=== PATIENT | male | born 1970 | race Caucasian/White ===

== ENCOUNTER 2024-04-07 21:30 | Inpatient (IN) ==
[2024-04-07] MEDS: methylPREDNISolone 125 MG/2 ML VIAL IV STA (23:31)
[2024-04-07] MEDS: ALBUT/IPRATROP 3MG/0.5MG NEB 3 ML VIAL NEB STA (23:32)
[2024-04-07] MEDS: SODIUM CHLORIDE 0.9% 500 ML IV ONE (23:34)
[2024-04-07 23:35] LABS: Hematocrit (blood only) 47.1 % (42.0-52.0); Hemoglobin 16.5 g/dl (14.0-18.0); Mean Corpuscular Hemoglobin 32.1 pg (25.0-34.0); Mean Corpuscular Volume 91.6 fL (80.0-100.0); Mean Platelet Volume 11.5 fL (9.4-12.4); Platelet Count 225 K/uL (130-400); RDW Coefficient of Variation 13.2 % (11.5-14.5); RDW Standard Deviation 44.1 fL (36.4-46.3); Red Blood Count 5.14 M/uL (4.70-6.10); White Blood Count 8.68 K/ul (4.8-10.8)
[2024-04-07] MEDS: MAGNESIUM SULFATE / D5W 1 GM/100 ML BAG IV STA (23:35)
[2024-04-07 23:43] LABS: Albumin Globulin Ratio 1.5 (0.9-2); Albumin Level 4.5 gm/dl (3.4-5.0); BUN Creatinine Ratio 7.6 (10-20); Bilirubin,Total 0.4 mg/dl (0.2-1.0); Calcium 9.3 mg/dl (8.6-10.3); Creatinine Clr Calc Pharmacy 101.5 ml/min; Magnesium 1.8 mg/dl (1.7-2.4); Potassium 3.9 mmol/L (3.5-5.1); Total Protein 7.5 gm/dl (6.0-8.3)
[2024-04-07 23:49] LABS: Troponin I High Sensitivity 4.1 pg/ml (0-20)
[2024-04-07 23:54] LABS: Basophils # (auto) 0.02 K/uL (0.00-0.20); Basophils % (auto) 0.2 %; Immature Granulocytes # (auto) 0.05 K/uL (0.01-0.20); Immature Granulocytes % (auto) 0.6 %; Lymphocytes # (auto) 0.38 K/uL (1.20-3.40); Lymphocytes % (auto) 4.4 %; Monocytes # (auto) 0.33 K/uL (0.11-0.59); Monocytes % (auto) 3.8 %
[2024-04-08 00:04] LABS: D Dimer 320 ug/L FEU (0-500); Prothrombin Time 11.1 Seconds (9.0-12.0)
[2024-04-08 00:17] LABS: Adenovirus PCR Not Detected (NotDetected); Bordetella parapertussis PCR Not Detected (NotDetected); Bordetella pertussis PCR Not Detected (NotDetected); Chlamydia pneumoniae PCR Not Detected (NotDetected); Coronavirus 229E PCR Not Detected (NotDetected); Coronavirus CoV-2 (COVID19)PCR Not Detected (NotDetected); Coronavirus HKU1 PCR Not Detected (NotDetected); Coronavirus NL63 PCR Not Detected (NotDetected); Coronavirus OC43PCR Not Detected (NotDetected); Human Metapneumovirus PCR Not Detected (NotDetected); Influenza A (H1 2009) PCR DETECTED (NotDetected); Influenza B PCR Not Detected (NotDetected); Mycoplasma pneumoniae PCR Not Detected (NotDetected); Parainfluenza Virus 1 PCR Not Detected (NotDetected); Parainfluenza Virus 2 PCR Not Detected (NotDetected); Parainfluenza Virus 3 PCR Not Detected (NotDetected); Parainfluenza Virus 4 PCR Not Detected (NotDetected); Respiratory Syncytial VirusPCR Not Detected (NotDetected); Rhinovirus/Enterovirus PCR Not Detected (NotDetected)
[2024-04-08] MEDS: CETIRIZINE HCL 10 MG TABLET PO ONE (00:33)
[2024-04-08] MEDS: FAMOTIDINE 20MG IV PUSH 20 MG/5 ML SYR IV STA (00:34)
[2024-04-08] MEDS: PANTOprazole 40 MG/10 ML SYR IV ONE (00:38)
[2024-04-08] MEDS: ALBUT/IPRATROP 3MG/0.5MG NEB 3 ML VIAL NEB STA ×2 (00:41→01:40)
[2024-04-08] MEDS: LORazepam 1 MG/1 ML SYR ED Inj Use IV STA (00:45)
--- NOTE | 2024-04-08 00:50 | Emergency Department Note ---
Impression & Plan Dyspnea, Influenza A, Acute exacerbation of chronic obstructive pulmonary disease (COPD), Dehydration ED Provider Note ED Provider Note NAME: ASHLEY HORAN AGE:53 SEX: Male : 1970 ARRIVES VIA: private vehicle INFORMANT: Patient ED PROVIDER(s): Pura Salgado DO CHIEF COMPLAINT: Shortness of breath, cough HPI: This is a 53-year-old male who presents to the emergency department due to concern for increased shortness of breath and persistent cough. Patient with a known history of COPD. Patient states symptoms have been worsening over the last few days. Patient states he was also sick with GI symptoms recently and suspected he had the flu his multiple family members were also sick. Patient states he had a similar episode back in the fall and he was given IV steroids and an antibiotic. He does follow with pulmonology locally, Dr. Mckeon. Patient does use inhalers at home as well as nebulizers. He does not wear home oxygen. He does take azithromycin 3 times a week at baseline. PAST MEDICAL HISTORY:See Below PAST SURGICAL HISTORY:See Below FAMILY HISTORY:See Below SOCIAL HISTORY:See Below HOME MEDICATIONS:See Below ALLERGIES:See Below VITALS:See Below PHYSICAL EXAMINATION: GENERAL: alert, well appearing, well nourished, no distress, non-toxic, BMI 36 EYE EXAM: normal conjunctiva, PERRL and EOM's grossly intact OROPHARYNX: no exudate, no erythema, lips, buccal mucosa, and tongue normal and mucous membranes are moist NECK: supple, no nuchal rigidity, no adenopathy, non-tender LUNGS: Decreased bilaterally to auscultation. Normal chest wall mechanics, no r/r, faint end exp wheeze HEART: no murmurs, S1 normal and S2 normal ABDOMEN: abdomen soft, non-tender, normo-active bowel sounds, no masses, no rebound or guarding. SKIN: no rashes, petechiae, orbruising UPPER EXTREMITIES: upper extremities are grossly normal. FROM, nml pulses b/l. LOWER EXTREMITIES: No pitting edema. FROM, nml pulses b/l. NEURO EXAM: Normal sensorium, cranial nerves II-XII grossly intact, normal speech, no facial droop,nogross weakness of arms, no gross weakness of legs. Gross sensation intact. No ataxia. Vital Signs: reviewed and remarkable Differential Diagnosis: pneumonia, bronchitis, COPD/Asthma exacerbation, pneumothorax, pulmonary embolism, congestive heart failure, acute coronary syndrome, as well as others were considered MEDICAL DECISION MAKING: This is a 53-year-old male with history of significant COPD/emphysema who presents due to worsening shortness of breath, cough, and chest tightness evolving over the last several days after recent accompanying illness with GI symptoms. He was noted to be tachycardic and hypertensive here with markedly diminished breath sounds and scattered faint expiratory wheeze. Labs drawn and sent, IV established, EKG and chest ray performed at bedside interpreted me and patient monitored on telemetry. He was given a DuoNeb here as well as IV Solu- Medrol and IV magnesium. I did review his prior admission for COPD exacerbation. We discussed prior antibiotics as well and his current MDI/nebs. Patient given several more DuoNebs without significant improvement. Patient's nasal swab ultimately positive for influenza A which has likely been the cause of his other recent symptoms which may have exacerbated his underlying COPD. Patient with persistent tachycardia here additionally. We discussed all results as well as concern for his ongoing symptoms at bedside as he only had temporary relief following the nebulizer treatments. He was in agreement with the plan for further inpatient evaluation. Case discussed with the hospitalist team additionally. Consultation(s): 0225: Discussed with Dr. Contreras, [facility] hospitalist team, for additional evaluation and management. ER Treatment Provided: See below 0215: Patient still with difficulty breathing and chest tightness although no adventitious lung sounds noted after the third DuoNeb treatment and having already received IV Solu-Medrol IV magnesium and 500 mL of IV fluid. Patient does note he has temporary relief during the breathing treatment of approximately 10 to 15 minutes however he then begins to feel as though his symptoms are returning. Due to concern for advanced COPD/emphysema and concurrent influenza A infection, we discussed further inpatient management and possible pulmonary evaluation. Diagnostics Interpreted By Me: -ECG: Sinus tachycardia 120, normal axis, normal intervals, no acute ST/T wave changes -Cardiac Monitoring: An order was placed for continuous cardiac monitoring. The monitor shows a rate of 112 with sinus tachycardia rhythm. -Laboratory studies: As stated above and show below. -Imaging studies: X-ray Chest: A single view study of the chest was reviewed and was negative for cardiomegaly, focal infiltrate, effusion, pulmonary edema, or wide mediastinum. Triage Nursing Note Reviewed Prior/Outside Records Reviewed Critical Care: Critical care of 39 min performed to assess and manage high likelihood of life-threatening dyspnea, involving labs and imaging performed with assessment to evaluate COPD exacerbation diagnosis with frequent reassessment. This time includes bedside time, treatment discussions with patient/family/consultants, documentation time and excludes procedure time. Past Med/Surg History Problem List (Updated 04/08/24 @ 00:50 by Pura Salgado, DO) Dehydration (Acute) Acute exacerbation of chronic obstructive pulmonary disease (COPD) (Acute) Influenza A (Acute) Dyspnea (Acute) Type 2 diabetes mellitus DANIELITO (obstructive sleep apnea) Dyslipidemia Chronic bronchitis Allergic rhinitis with postnasal drip Hypersomnia Exertional shortness of breath COPD with emphysema Depression History of tobacco use Calcified granuloma of lung Insulin-requiring or dependent type II diabetes mellitus Hypertension Obesity Type 2 diabetes mellitus, controlled Abdominal pain Edema leg GERD (gastroesophageal reflux disease) Encounter for pre-operative examination Nasal congestion Frontal headache Chronic sinusitis Shortness of breath FOLLOWS WITH PULMONOLOGY (REASON FOR PREDNISONE) ? DX Emphysema of lung Dyspnea (Acute) Medical History Bulging disc LUMBAR Degenerative disc disease Environmental allergies Surgical History H/O shoulder surgery RT History of tooth extraction History of tonsillectomy Family History Mother Diabetes COPD (chronic obstructive pulmonary disease) Father Diabetes Coronary heart disease Grandmother (Maternal) Family history of diabetes mellitus Social History Smoking Status: Former smoker Tobacco Type: Cigarettes Age Started Using Tobacco: 12; Age Quit Using Tobacco: 46; packs per day: 1.5; Second Hand Exposure: Yes ( A CHILD); Do You Dip or Chew Tobacco: No; Hx Alcohol Use: Yes Alcohol type: beer Hx Substance Use: No Preferred Language: Ug[place]an Communication Ability: Effective Toby Maker Required: No Beliefs That Will Affect Care: None marital status: Current Living Situation: Spouse Current Living Situation Comment: at home life partner Feels Safe at Home: Yes Safety Concerns: Feels Safe At This Time Assistive Devices: CPAP Allergies Allergies Allergy/AdvReac Type Severity Reaction Status Date / Time No Known Drug Allergies Allergy Verified 03/19/24 15:48 Home Meds Home Medications Medication Instructions Recorded Confirmed ascorbate calcium (vitamin C) 500 500 mg PO DAILY 06/05/20 04/08/24 mg tablet cholecalciferol (vitamin D3) 125 50 mcg PO DAILY 06/05/20 04/08/24 mcg (5,000 unit) tablet (Vitamin D3) magnesium 250 mg tablet 250 mg PO DAILY 06/05/20 04/08/24 zinc gluconate 30 mg tablet 30 mg PO DAILY 06/05/20 04/08/24 levocetirizine 5 mg tablet 5 mg PO DAILY PRN allergy symptoms 01/18/22 04/08/24 mecobalamin (vitamin B12) 5,000 5,000 mcg PO DAILY 02/10/23 04/08/24 mcg chewable tablet clonazepam 1 mg tablet 1 - 2 mg PO DAILY PRN Anxiety AND 12/05/23 04/08/24 PANIC bupropion HCl 200 mg tablet,12 hr 200 mg PO QAM 04/08/24 04/08/24 sustained-release famotidine 20 mg tablet 20 mg PO BID 04/08/24 04/08/24 pantoprazole 40 mg tablet,delayed 40 mg PO BID 04/08/24 04/08/24 release vortioxetine 20 mg tablet 20 mg PO QAM 04/08/24 04/08/24 (Trintellix) Previous Rx's Medication Instructions Recorded nebulizers #1 ea 11/25/20 azelastine 137 mcg (0.1 %) nasal 1 spray intranasal BID #30 mL 06/21/22 spray Flutter Valve #1 ea 06/22/22 nebulizers (Aeroneb Go Nebulizer) #1 ea 06/23/22 flash glucose sensor (FreeStyle #2 ea 10/29/22 Mehul 2 Sensor kit) benzonatate 100 mg capsule 100 mg PO BID #90 caps 12/07/22 Auto Titrating CPAP #1 ea 02/16/23 CPAP Supplies #1 ea 02/16/23 furosemide 20 mg tablet (Lasix) 20 mg PO BID #180 tabs 07/18/23 betamethasone dipropionate 0.05 % 1 applic topical DAILY #60 mL 09/07/23 lotion blood sugar diagnostic #200 ea 12/28/23 insulin aspart U-100 100 unit/mL 6 unit (0.06 mL) subcut TID #30 mL 12/28/23 (3 mL) subcutaneous pen (Novolog FlexPen U-100 Insulin aspart) insulin glargine 100 unit/mL (3 6 unit (0.06 mL) subcut DAILY #15 12/28/23 mL) subcutaneous pen (Lantus mL Solostar U-100 Insulin) lancets #200 ea 12/28/23 pen needle, diabetic 32 gauge x #400 ea 01/13/24" (BD Ultra-Fine Tammie Pen Needle) albuterol sulfate 90 mcg/actuation 2 inh inhalation Q4H PRN Shortness 01/24/24 aerosol inhaler (Ventolin HFA) Of Breath Or Wheezing #2 Inhalers azithromycin 250 mg tablet 250 mg PO .COMPLEX #36 tabs 01/24/24 budesonide 160 mcg-glycopyr 9 2 inh inhalation BID #3 Inhalers 01/24/24 mcg-formot 4.8 mcg/actuation HFA inhaler (Breztri Aerosphere) dextromethorphan-guaifenesin 30 1 tab PO Q12H PRN cough #90 tabs 01/24/24 mg-600 mg tablet extended [id number] hr (Mucinex DM) ipratropium 0.5 mg-albuterol 3 mg 3 ml inhalation Q8H PRN shortness 01/24/24 (2.5 mg base)/3 mL nebulization of breath or wheezing #180 mL soln montelukast 10 mg tablet 10 mg PO QPM #30 tabs 01/24/24 (Singulair) losartan 25 mg tablet 25 mg PO DAILY #90 tabs 03/19/24 rosuvastatin 10 mg tablet 10 mg PO DAILY #90 tabs 03/19/24 tirzepatide 12.5 mg/0.5 mL 12.5 mg (0.5 mL) subcut ONCE #6 mL 03/19/24 subcutaneous pen injector (Berenice) Results & Data (ED) Vital Signs Vital Signs - 24 hr 04/08/24 01:51 04/08/24 01:52 04/08/24 02:01 Pulse Rate 119 H 114 H 119 H Pulse Rate from SpO2 Sensor 116 H 115 H Respiratory Rate 18 18 Blood Pressure 154/125 H 167/101 H Blood Pressure Mean 134 112 Pulse Oximetry 98 98 Oxygen Delivery Method Room Air Room Air 04/08/24 02:03 Pulse Rate 124 H Pulse Rate from SpO2 Sensor 124 H Respiratory Rate 23 Blood Pressure 167/101 H Blood Pressure Mean 123 Pulse Oximetry 93 Oxygen Delivery Method Room Air Laboratory Data 04/07/24 21:57 04/07/24 21:57 Lab Results 04/07/24 Range/Units 21:57 WBC 8.68 (4.8-10.8) K/ul RBC 5.14 (4.70-6.10) M/uL Hgb 16.5 (14.0-18.0) g/dl Hct 47.1 (42.0-52.0) % MCV 91.6 (80.0-100.0) fL MCH 32.1 (25.0-34.0) pg MCHC 35.0 (32.0-36.0) g/dL RDW Std Deviation 44.1 (36.4-46.3) fL RDW Coeff of Barby 13.2 (11.5-14.5) % Plt Count 225 (130-400) K/uL MPV 11.5 (9.4-12.4) fL Immature Gran % (Auto) 0.6 % Neut % (Auto) 91.0 % Lymph % (Auto) 4.4 % [place] % (Auto) 3.8 % Eos % (Auto) 0.0 % Baso % (Auto) 0.2 % Neut # (Auto) 7.90 H (1.40-6.50) K/uL Lymph # (Auto) 0.38 L (1.20-3.40) K/uL [place] # (Auto) 0.33 (0.11-0.59) K/uL Eos # (Auto) 0.00 (0.00-0.50) K/uL Baso # (Auto) 0.02 (0.00-0.20) K/uL Immature Gran # (Auto) 0.05 (0.01-0.20) K/uL PT 11.1 (9.0-12.0) Seconds INR 1.0 (0.9-1.1) D-Dimer 320 (0-500) ug/L FEU Sodium 137 (136-145) mmol/L Potassium 3.9 (3.5-5.1) mmol/L Chloride 101 (98-107) mmol/L Carbon Dioxide 26 (21-32) mmol/L Anion Gap 10 (3-11) BUN 9 (6-23) mg/dl Creatinine 1.18 (0.6-1.4) mg/dl Est Cr Clr Drug Dosing 101.5 ml/min eGFR 73.33 BUN/Creatinine Ratio 7.6 L (10-20) Glucose 126 H (70-99(Fasting)) mg/dl Calcium 9.3 (8.6-10.3) mg/dl Magnesium 1.8 (1.7-2.4) mg/dl Total Bilirubin 0.4 (0.2-1.0) mg/dl AST 21 (13-39) U/L ALT 23 (7-52) U/L Alkaline Phosphatase 78 (34-104) U/L Troponin I High Sens 4.1 (0-20) pg/ml Total Protein 7.5 (6.0-8.3) gm/dl Albumin 4.5 (3.4-5.0) gm/dl Globulin 3.0 (2.5-4.0) gm/dl Albumin/Globulin Ratio 1.5 (0.9-2) Nasal Influ A H1 2009 PCR DETECTED A (NotDetected) Adenovirus (PCR) Not Detected (NotDetected) B. pertussis DNA (PCR) Not Detected (NotDetected) B.parapertussis DNA PCR Not Detected (NotDetected) C. pneumoniae DNA (PCR) Not Detected (NotDetected) Coronavirus OC43 (PCR) Not Detected (NotDetected) Coronavirus HKU1 (PCR) Not Detected (NotDetected) Coronavirus 229E (PCR) Not Detected (NotDetected) SARS-CoV-2 (PCR) Not Detected (NotDetected) Coronavirus NL63 (PCR) Not Detected (NotDetected) Human Metapneumovir PCR Not Detected (NotDetected) Influenza Type B (PCR) Not Detected (NotDetected) M. pneumoniae (PCR) Not Detected (NotDetected) Parainfluenza 1 (PCR) Not Detected (NotDetected) Parainfluenza 2 (PCR) Not Detected (NotDetected) Parainfluenza 3 (PCR) Not Detected (NotDetected) Parainfluenza 4 (PCR) Not Detected (NotDetected) RSV (PCR) Not Detected (NotDetected) Entero/Rhino (PCR) Not Detected (NotDetected) Administered Medications Acetaminophen (Acetaminophen 325 Mg Tab) 650 mg PO Q4H PRN PRN Reason: Pain or Fever Stop: 05/08/24 05:14 Last Admin: 04/08/24 22:44 Dose: 650 mg Documented By: KDL Albuterol (Albut/Ipratrop 3mg/0.5mg Neb 3 Ml Vial) 3 ml NEB Q4R GRACE; Protocol Stop: 05/08/24 06:59 Last Admin: 04/08/24 22:41 Dose: 3 ml Documented By: Admin: 04/08/24 19:46 Dose: 3 ml Documented By: EMMario Admin: 04/08/24 14:37 Dose: 3 ml Documented By: Admin: 04/08/24 11:21 Dose: 3 ml Documented By: [id number] Admin: 04/08/24 06:43 Dose: 3 ml Documented By: CATHLEEN Azithromycin (Azithromycin 250 Mg Tab) 250 mg PO [facility] Stop: 04/10/24 08:59 Last Admin: 04/08/24 08:58 Dose: 250 mg Documented By: KESHA Bupropion HCl (Bupropion Sr 100 Mg Tabcr) 200 mg PO [facility] Stop: 05/08/24 08:59 Last Admin: 04/08/24 08:58 Dose: 200 mg Documented By: KESHA Enoxaparin Sodium (Enoxaparin Inj 40 Mg/0.4 Ml Syr) 40 mg SQ [facility] Stop: 05/08/24 08:59 Last Admin: 04/08/24 08:57 Dose: 40 mg Documented By: KESHA Famotidine (Famotidine 20 Mg Tab) 20 mg PO BID [facility] Stop: 05/08/24 08:59 Last Admin: 04/08/24 22:01 Dose: 20 mg Documented By: Admin: 04/08/24 08:58 Dose: 20 mg Documented By: KESHA Fluticasone Furoate (Fluticasone Furoate 200mcg 14 Puffs/Inhaler) 1 puffs INH DAILY [facility] Stop: 05/08/24 08:59 Last Admin: 04/08/24 08:59 Dose: 1 puffs Documented By: KESHA Furosemide (Furosemide 20 Mg Tab) 20 mg PO BID17 [facility] Stop: 05/08/24 08:59 Last Admin: 04/08/24 16:10 Dose: 20 mg Documented By: Admin: 04/08/24 08:58 Dose: 20 mg Documented By: KESHA Guaifenesin (Guaifenesin 600 Mg Tabcr) 600 mg PO Q12 [facility] Stop: 05/08/24 08:59 Last Admin: 04/08/24 22:01 Dose: 600 mg Documented By: Admin: 04/08/24 08:58 Dose: 600 mg Documented By: KESHA Methylprednisolone 60 mg/ (Syringe) 0.96 mls @ 1.5 mls/min IV Q8H [facility] Stop: 05/08/24 05:59 Last Admin: 04/09/24 00:32 Dose: 1.5 mls/min Documented By: Admin: 04/08/24 16:10 Dose: 1.5 mls/min Documented By: Admin: 04/08/24 08:57 Dose: 1.5 mls/min Documented By: KESHA Insulin Aspart (Insulin Aspart Per Unit Charge) 0 units SC ACHS [facility] Stop: 05/08/24 07:29 Last Admin: 04/08/24 22:23 Dose: Not Given Documented By: Admin: 04/08/24 16:38 Dose: 2 units Documented By: JESUS Co-signed By: MCKINLEY Admin: 04/08/24 12:59 Dose: Not Given Documented By: Admin: 04/08/24 09:49 Dose: 4 units Documented By: KESHA Co-signed By: HAO Insulin Glargine (Lantus Per Unit Charge) 12 units SQ BID [facility] Stop: 05/08/24 08:59 Last Admin: 04/08/24 22:25 Dose: 12 units Documented By: SHUBHAM Co-signed By: BLANCA Admin: 04/08/24 09:50 Dose: 12 units Documented By: KESHA Co-signed By: HAO Losartan Potassium (Losartan Potassium 25 Mg Tab) 25 mg PO DAILY [facility] Stop: 05/08/24 08:59 Last Admin: 04/08/24 08:58 Dose: 25 mg Documented By: KESHA Miscellaneous (Trentellix~Order Awaiting Action) 1 each N/A QS [facility] Stop: 05/08/24 07:59 Last Admin: 04/08/24 23:35 Dose: Not Given Documented By: Admin: 04/08/24 16:17 Dose: Not Given Documented By: Admin: 04/08/24 11:23 Dose: Not Given Documented By: ELIE Oseltamivir Phosphate (Oseltamivir Phosphate 75 Mg Cap) 75 mg PO BID [facility]; Protocol Stop: 04/13/24 08:59 Last Admin: 04/08/24 22:00 Dose: 75 mg Documented By: Admin: 04/08/24 08:58 Dose: 75 mg Documented By: KESHA Pantoprazole Sodium (Pantoprazole 40 Mg Tab) 40 mg PO BID [facility] Stop: 05/08/24 08:59 Last Admin: 04/08/24 22:02 Dose: 40 mg Documented By: Admin: 04/08/24 08:58 Dose: 40 mg Documented By: KESHA Rosuvastatin Calcium (Rosuvastatin Calcium 10 Mg Tab) 10 mg PO DAILY [facility] Stop: 05/08/24 08:59 Last Admin: 04/08/24 08:58 Dose: 10 mg Documented By: KESHA Umeclidinium/Vilanterol (Umeclidinium/Vilanterol 62.5/25mcg 7 Puffs/Inhaler) 1 puffs INH DAILY [facility] Stop: 05/08/24 08:59 Last Admin: 04/08/24 08:59 Dose: 1 puffs Documented By: KESHA Discontinued Medications Albuterol (Albut/Ipratrop 3mg/0.5mg Neb 3 Ml Vial) 3 ml NEB NOW STA; Protocol Stop: 04/07/24 23:00 Last Admin: 04/07/24 23:32 Dose: 3 ml Documented By: TIFFANIE Albuterol (Albut/Ipratrop 3mg/0.5mg Neb 3 Ml Vial) 3 ml NEB NOW STA; Protocol Stop: 04/08/24 00:13 Last Admin: 04/08/24 00:41 Dose: 3 ml Documented By: TIFFANIE Albuterol (Albut/Ipratrop 3mg/0.5mg Neb 3 Ml Vial) 3 ml NEB NOW STA; Protocol Stop: 04/08/24 01:21 Last Admin: 04/08/24 01:40 Dose: 3 ml Documented By: TIFFANIE Cetirizine HCl (Cetirizine Hcl 10 Mg Tablet) 10 mg PO NOW ONE Stop: 04/08/24 00:29 Last Admin: 04/08/24 00:33 Dose: 10 mg Documented By: TIFFANIE Sodium Chloride (Nss) 500 mls @ 999 mls/hr IV .Q31M ONE Stop: 04/07/24 23:29 Last Infusion: 04/08/24 00:37 Dose: Infused Documented By: Admin: 04/07/24 23:34 Dose: 999 mls/hr Documented By: TIFFANIE Magnesium Sulfate/Dextrose (Magnesium Sulfate / D5w) 1 gm in 100 mls @ 100 mls/hr IV NOW STA Stop: 04/07/24 23:59 Last Infusion: 04/08/24 00:37 Dose: Infused Documented By: Admin: 04/07/24 23:35 Dose: 100 mls/hr Documented By: TIFFANIE Famotidine (Pepcid 20mg Iv Push) 20 mg in 5 mls @ 2.5 mls/min IV NOW STA Stop: 04/08/24 00:29 Last Admin: 04/08/24 00:34 Dose: 2.5 mls/min Documented By: TIFFANIE Pantoprazole Sodium (Protonix) 40 mg in 10 mls @ 5 mls/min IV NOW ONE Stop: 04/08/24 00:29 Last Admin: 04/08/24 00:38 Dose: 5 mls/min Documented By: TIFFANIE Levalbuterol HCl (Levalbuterol 1.25 Mg/3 Ml Neb) 1.25 mg NEB NOW STA Stop: 04/08/24 02:26 Last Admin: 04/08/24 02:34 Dose: 1.25 mg Documented By: FRANCISCA Lorazepam (Lorazepam 1 Mg/1 Ml Syr Ed Inj Use) 0.25 mg IV ONE STA Stop: 04/08/24 00:29 Last Admin: 04/08/24 00:45 Dose: 0.25 mg Documented By: TIFFANIE Lorazepam (Lorazepam 2 Mg/1 Ml Vial) 0.25 mg IV NOW STA Stop: 04/08/24 01:56 Last Admin: 04/08/24 02:34 Dose: 0.25 mg Documented By: FRANCISCA Methylprednisolone (Methylprednisolone 125 Mg/2 Ml Vial) 60 mg IV NOW STA Stop: 04/07/24 23:00 Last Admin: 04/07/24 23:31 Dose: 60 mg Documented By: TIFFANIE Imaging Data Radiologist's Impression: Chest X-Ray 04/07/24 22:59 Exam(s): XR CXR 1 VIEW EXAM: XR Chest, 1 View CLINICAL HISTORY: Reason for exam: sob. TECHNIQUE: Frontal view of the chest. COMPARISON: No relevant prior studies available. FINDINGS: Lungs: Unremarkable. No consolidation. Pleural space: Unremarkable. No pneumothorax. Heart: Unremarkable. No cardiomegaly. Mediastinum: Unremarkable. Normal mediastinal contour. Bones/joints: Unremarkable. No acute fracture. IMPRESSION: Normal chest x-ray. Electronically signed by: Silvino Zamorano MD 04/08/24 01:21 AM Discharge Plan Visit Data Chief Complaint: Shortness of Breath/Dyspnea Stated Complaint: TROUBLE BREATHING,COPD FLARE UP,WEAKNESS,COUGH ED Provider: Pura Salgado Discharge Problem: Dyspnea, Influenza A, Acute exacerbation of chronic obstructive pulmonary disease (COPD), Dehydration Patient Disposition: Admitted As Inpatient Discharge Instructions Interventions: ED Discharge Assessment Last Done: 04/08/24 05:14
--- NOTE | 2024-04-08 01:21 | XRay Report ---
Exam(s): XR CXR 1 VIEW EXAM: XR Chest, 1 View CLINICAL HISTORY: Reason for exam: sob. TECHNIQUE: Frontal view of the chest. COMPARISON: No relevant prior studies available. FINDINGS: Lungs: Unremarkable. No consolidation. Pleural space: Unremarkable. No pneumothorax. Heart: Unremarkable. No cardiomegaly. Mediastinum: Unremarkable. Normal mediastinal contour. Bones/joints: Unremarkable. No acute fracture. IMPRESSION: Normal chest x-ray. Electronically signed by: Silvino Zamorano MD 04/08/24 01:21 AM
[2024-04-08] MEDS: LEVALBUTEROL 1.25 MG/3 ML NEB NEB STA (02:34)
[2024-04-08] MEDS: LORazepam 2 MG/1 ML VIAL IV STA (02:34)
--- NOTE | 2024-04-08 03:13 | History & Physical Report ---
Date of Service April 08, 2024 Assessment & Plan (1) Acute exacerbation of chronic obstructive pulmonary disease (COPD): (2) Influenza A: (3) Type 2 diabetes mellitus: (4) DANIELITO (obstructive sleep apnea): (5) Dyslipidemia: (6) Depression: (7) Hypertension: (8) GERD (gastroesophageal reflux disease): Plan Patient is a 53-year-old male with past medical history of COPD, DANILEITO (not on home CPAP, but was recommended), diabetes type 2, hyperlipidemia, MDD, hypertension, and GERD who arrived to the emergency department due to worsening shortness of breath, and was therefore admitted for management of COPD exacerbation. Acute Respiratory Failure // COPD exacerbation // Influenza A (+) -Patient with known history of COPD currently in exacerbation likely due to a combination of body habitus and current flu A infection -Solu-Medrol 60 mg q8h -DuoNeb q4h crystal as well as DuoNeb q2h prn for breakthrough shortness of breath -Continue home inhalers -Oxygen supplementation as needed with oxygen goal of 88-92% -Continue azithromycin 250 mg p.o. daily -Will order Tamiflu 75 mg twice daily -Supportive therapy with Mucinex and Tessalon Perles DM-II - Last Hgb A1c from 04/2023 was 5.4% - Repeat Hgb A1c ordered - Lantus and SSI ordered HTN - Continue home Lasix HLD - Continue home Rosuvastatin RUQ pain - Patient states he has hx of RUQ pain that has been present since 2 years ago - Has had US done and was unremarkable, per patient - May consider repeat US if sxs worsen or transaminitis develops MDD - Continue home bupropion - Uses Clonazepam at home as needed for increased anxiety/panic, but use is very infrequent per patient GERD - Continue home pepcid and protonix DANIELITO - CPAP hs Dispo: Admit to PCU/Tele Fluids: none Diet: HH, DM-2 Pain Control: Tylenol VTE ppx: Lovenox Code Status: FULL CODE History of Present Illness Chief Complaint: Shortness of Breath Primary Care Provider: Reji Ga DO Patient is a 53-year-old male with past medical history of COPD, DANIELITO (on home CPAP), diabetes type 2, hyperlipidemia, MDD, hypertension, and GERD who arrived to the emergency department due to worsening shortness of breath. Patient states that a week ago he started having flulike symptoms that included productive cough, nausea and vomiting, fatigue, as well as an associated chest tightness. After 2 to 3 days of symptom onset, patient states that symptoms did begin to improve, however they began to worsen again pretty soon after. Since yesterday, patient states that he has been having progressively worsening shortness of breath that was not resolved with home nebulizer treatments as well as an associated chest tightness that is localized to the central aspect of his chest without any radiation. Patient does not use oxygen at baseline, and is compliant with scheduled inhalers as were prescribed by his chronometer adjuster. Denies any current tobacco use, and states that he stopped smoking tobacco products 7 years ago. Denies any fevers, chills, weakness, palpitations, tachycardia, chest pain, or any other systemic symptoms. ED Course: Patient given Solu-Medrol 60 mg x 1, DuoNeb x 3 with minimal improvement in shortness of breath and quick return of symptoms after treatment was completed, and Ativan 0.25 mg x 1. Patient requiring oxygen via nasal cannula 2 L/min at time of arrival to ED but by the time of evaluation patient was breathing at room air and was at the time completing the nebulizer tx. Labs/Imaging: CBC without leukocytosis and stable hemoglobin at 16.5, platelets of 225. CMP without electrolyte abnormalities and renal markers within reference range. Troponin is negative at 4.1. Bio fire negative. Swab positive for influenza A. Chest x-ray without any acute process. Medical History: [Reviewed] Medications: [Reviewed] Surgical History: [Reviewed] Family history: [Reviewed] Allergies: [Reviewed] Social History: [Reviewed] Code Status: FULL CODE Allergies Allergy/AdvReac Type Severity Reaction Status Date / Time No Known Drug Allergies Allergy Verified 03/19/24 15:48 Home Medications Medication Instructions Recorded Confirmed Type ascorbate calcium (vitamin C) 500 500 mg PO DAILY 06/05/20 04/08/24 History mg tablet cholecalciferol (vitamin D3) 125 50 mcg PO DAILY 06/05/20 04/08/24 History mcg (5,000 unit) tablet (Vitamin D3) magnesium 250 mg tablet 250 mg PO DAILY 06/05/20 04/08/24 History zinc gluconate 30 mg tablet 30 mg PO DAILY 06/05/20 04/08/24 History nebulizers #1 ea 11/25/20 04/08/24 Rx levocetirizine 5 mg tablet 5 mg PO DAILY PRN allergy symptoms 01/18/22 04/08/24 History azelastine 137 mcg (0.1 %) nasal 1 spray intranasal BID #30 mL 06/21/22 04/08/24 Rx spray Flutter Valve #1 ea 06/22/22 04/08/24 Rx nebulizers (Aeroneb Go Nebulizer) #1 ea 06/23/22 04/08/24 Rx flash glucose sensor (FreeStyle #2 ea 10/29/22 04/08/24 Rx Mehul 2 Sensor kit) benzonatate 100 mg capsule 100 mg PO BID #90 caps 12/07/22 04/08/24 Rx mecobalamin (vitamin B12) 5,000 5,000 mcg PO DAILY 02/10/23 04/08/24 History mcg chewable tablet Auto Titrating CPAP #1 ea 02/16/23 04/08/24 Rx CPAP Supplies #1 ea 02/16/23 04/08/24 Rx furosemide 20 mg tablet (Lasix) 20 mg PO BID #180 tabs 07/18/23 04/08/24 Rx betamethasone dipropionate 0.05 % 1 applic topical DAILY #60 mL 09/07/23 04/08/24 Rx lotion clonazepam 1 mg tablet 1 - 2 mg PO DAILY PRN Anxiety AND 12/05/23 04/08/24 History PANIC blood sugar diagnostic #200 ea 12/28/23 04/08/24 Rx insulin aspart U-100 100 unit/mL 6 unit (0.06 mL) subcut TID #30 mL 12/28/23 04/08/24 Rx (3 mL) subcutaneous pen (Novolog FlexPen U-100 Insulin aspart) insulin glargine 100 unit/mL (3 6 unit (0.06 mL) subcut DAILY #15 12/28/23 04/08/24 Rx mL) subcutaneous pen (Lantus mL Solostar U-100 Insulin) lancets #200 ea 12/28/23 04/08/24 Rx pen needle, diabetic 32 gauge x #400 ea 01/13/24 04/08/24 Rx 5/32" (BD Ultra-Fine Tammie Pen Needle) albuterol sulfate 90 mcg/actuation 2 inh inhalation Q4H PRN Shortness 01/24/24 04/08/24 Rx aerosol inhaler (Ventolin HFA) Of Breath Or Wheezing #2 Inhalers azithromycin 250 mg tablet 250 mg PO .COMPLEX #36 tabs 01/24/24 04/08/24 Rx budesonide 160 mcg-glycopyr 9 2 inh inhalation BID #3 Inhalers 01/24/24 04/08/24 Rx mcg-formot 4.8 mcg/actuation HFA inhaler (Breztri Aerosphere) dextromethorphan-guaifenesin 30 1 tab PO Q12H PRN cough #90 tabs 01/24/24 04/08/24 Rx mg-600 mg tablet extended hr (Mucinex DM) ipratropium 0.5 mg-albuterol 3 mg 3 ml inhalation Q8H PRN shortness 01/24/24 Rx (2.5 mg base)/3 mL nebulization of breath or wheezing #180 mL soln montelukast 10 mg tablet 10 mg PO QPM #30 tabs 01/24/24 04/08/24 Rx (Singulair) losartan 25 mg tablet 25 mg PO DAILY #90 tabs 03/19/24 04/08/24 Rx rosuvastatin 10 mg tablet 10 mg PO DAILY #90 tabs 03/19/24 04/08/24 Rx tirzepatide 12.5 mg/0.5 mL 12.5 mg (0.5 mL) subcut ONCE #6 mL 03/19/24 04/08/24 Rx subcutaneous pen injector (Mounjaro) bupropion HCl 200 mg tablet,12 hr 200 mg PO QAM 04/08/24 04/08/24 History sustained-release famotidine 20 mg tablet 20 mg PO BID 04/08/24 04/08/24 History pantoprazole 40 mg tablet,delayed 40 mg PO BID 04/08/24 04/08/24 History release vortioxetine 20 mg tablet 20 mg PO QAM 04/08/24 04/08/24 History (Trintellix) Past Med/Surg History Problem List (Updated 04/08/24 @ 00:50 by Pura Salgado DO) Dehydration (Acute) Acute exacerbation of chronic obstructive pulmonary disease (COPD) (Acute) Influenza A (Acute) Dyspnea (Acute) Type 2 diabetes mellitus DANIELITO (obstructive sleep apnea) Dyslipidemia Chronic bronchitis Allergic rhinitis with postnasal drip Hypersomnia Exertional shortness of breath COPD with emphysema Depression History of tobacco use Calcified granuloma of lung Insulin-requiring or dependent type II diabetes mellitus Hypertension Obesity Type 2 diabetes mellitus, controlled Abdominal pain Edema leg GERD (gastroesophageal reflux disease) Encounter for pre-operative examination Nasal congestion Frontal headache Chronic sinusitis Shortness of breath FOLLOWS WITH PULMONOLOGY (REASON FOR PREDNISONE) ? DX Emphysema of lung Dyspnea (Acute) Medical History Bulging disc LUMBAR Degenerative disc disease Environmental allergies Surgical History H/O shoulder surgery RT History of tooth extraction History of tonsillectomy Family History Mother Diabetes COPD (chronic obstructive pulmonary disease) Father Diabetes Coronary heart disease Grandmother (Maternal) Family history of diabetes mellitus Social History Smoking Status: Former smoker Tobacco Type: Cigarettes Age Started Using Tobacco: 12; Age Quit Using Tobacco: 46; packs per day: 1.5; Second Hand Exposure: Yes ( A CHILD); Do You Dip or Chew Tobacco: No; Hx Alcohol Use: Yes Alcohol type: beer Hx Substance Use: No Preferred Language: Kyrgyz Communication Ability: Effective County Agent Required: No Beliefs That Will Affect Care: None marital status: Current Living Situation: Spouse Current Living Situation Comment: at home life partner Feels Safe at Home: Yes Safety Concerns: Feels Safe At This Time Assistive Devices: CPAP Review of Systems Review of Systems: As per HPI Physical Exam Physical Exam: GENERAL: HEAD: EYES: THROAT: CHEST: CARDIO: PULMONARY: GI: : EXTREMITIES: SKIN: NEURO: Results & Data Results & Data Vital Signs (Past 12 Hours) Vital Signs Temp Pulse Pulse Resp BP BP Pulse Ox 04/08/24 02:03 124 H 23 167/101 H 93 04/08/24 02:01 119 H 18 167/101 H 98 04/08/24 01:52 114 H 04/08/24 01:51 119 H 18 154/125 H 98 04/08/24 01:03 126 H 19 143/92 H 94 04/08/24 00:45 108 H 21 199/97 H 100 04/08/24 00:39 113 H 18 199/97 H 100 04/08/24 00:30 108 H 16 93 04/08/24 00:12 122 H 15 93 04/07/24 23:03 122 H 19 136/100 96 04/07/24 22:45 119 H 15 95 04/07/24 22:30 128 H 15 97 04/07/24 22:18 112 H 19 96 04/07/24 21:54 122 H 17 95 04/07/24 21:53 136/100 04/07/24 21:51 117 H 04/07/24 21:47 124 H 14 136/100 95 04/07/24 21:47 94 04/07/24 21:47 04/07/24 21:37 37.7 C H 117 H 24 137/74 95 O2 Del Method O2 Flow Rate 04/08/24 02:03 Room Air 04/08/24 02:01 Room Air 04/08/24 01:52 04/08/24 01:51 Room Air 04/08/24 01:03 Room Air 04/08/24 00:45 Room Air 04/08/24 00:39 Room Air 04/08/24 00:30 Room Air 04/08/24 00:12 Room Air 04/07/24 23:03 Nasal Cannula 2 04/07/24 22:45 04/07/24 22:30 04/07/24 22:18 04/07/24 21:54 04/07/24 21:53 04/07/24 21:51 04/07/24 21:47 Room Air 04/07/24 21:47 Room Air 04/07/24 21:47 Room Air 04/07/24 21:37 Room Air Laboratory Results Laboratory Results WBC 8.68 K/ul (4.8-10.8) 04/07/24 21:57 RBC 5.14 M/uL (4.70-6.10) 04/07/24 21:57 Hgb 16.5 g/dl (14.0-18.0) 04/07/24 21:57 Hct 47.1 % (42.0-52.0) 04/07/24 21:57 MCV 91.6 fL (80.0-100.0) 04/07/24 21:57 MCH 32.1 pg (25.0-34.0) 04/07/24 21:57 MCHC 35.0 g/dL (32.0-36.0) 04/07/24 21:57 RDW Std Deviation 44.1 fL (36.4-46.3) 04/07/24 21:57 RDW Coeff of Barby 13.2 % (11.5-14.5) 04/07/24 21: Plt Count 225 K/uL (130-400) 04/07/24 21:57 MPV 11.5 fL (9.4-12.4) 04/07/24 21:57 Immature Gran % (Auto) 0.6 % 04/07/24: Neut % (Auto) 91.0 % 04/07/24 21:57 Lymph % (Auto) 4.4 % 04/07/24:57 [place] % (Auto) 3.8 % 04/07/24: Eos % (Auto) 0.0 % 04/07/24: Baso % (Auto) 0.2 % 04/07/24: Neut # (Auto) 7.90 K/uL (1.40-6.50) H 04/07/24: Lymph # (Auto) 0.38 K/uL (1.20-3.40) L 04/07/24 21:57 [place] # (Auto) 0.33 K/uL (0.11-0.59) 04/07/24: Eos # (Auto) 0.00 K/uL (0.00-0.50) 04/07/24 21:57 Baso # (Auto) 0.02 K/uL (0.00-0.20) 04/07/24: Immature Gran # (Auto) 0.05 K/uL (0.01-0.20) 04/07/24 21: PT 11.1 Seconds (9.0-12.0) 04/07/24 21:57 INR 1.0 (0.9-1.1) 04/07/24 21:57 D-Dimer 320 ug/L FEU (0-500) 04/07/24 21: Sodium 137 mmol/L (136-145) 04/07/24 21:57 Potassium 3.9 mmol/L (3.5-5.1) 04/07/24 21:57 Chloride 101 mmol/L (98-107) 04/07/24 21:57 Carbon Dioxide 26 mmol/L (21-32) 04/07/24 21:57 Anion Gap 10 (3-11) 04/07/24 21:57 BUN 9 mg/dl (6-23) 04/07/24 21:57 Creatinine 1.18 mg/dl (0.6-1.4) 04/07/24 21:57 Est Cr Clr Drug Dosing 101.5 ml/min 04/07/24 21:57 eGFR 73.33 04/07/24 21:57 BUN/Creatinine Ratio 7.6 (10-20) L 04/07/24 21:57 Glucose 126 mg/dl (70-99(Fasting)) H 04/07/24 21:57 POC Glucose 130 mg/dl (70-99) H 04/08/24 10:52 Calcium 9.3 mg/dl (8.6-10.3) 04/07/24 21:57 Magnesium 1.8 mg/dl (1.7-2.4) 04/07/24 21:57 Total Bilirubin 0.4 mg/dl (0.2-1.0) 04/07/24 21:57 AST 21 U/L (13-39) 04/07/24 21:57 ALT 23 U/L (7-52) 04/07/24 21:57 Alkaline Phosphatase 78 U/L (34-104) 04/07/24 21:57 Troponin I High Sens 4.1 pg/ml (0-20) 04/07/24 21:57 Total Protein 7.5 gm/dl (6.0-8.3) 04/07/24 21:57 Albumin 4.5 gm/dl (3.4-5.0) 04/07/24 21:57 Globulin 3.0 gm/dl (2.5-4.0) 04/07/24 21:57 Albumin/Globulin Ratio 1.5 (0.9-2) 04/07/24 21:57 Nasal Influ A H1 2009 PCR DETECTED (NotDetected) A 04/07/24 21:57 Adenovirus (PCR) Not Detected (NotDetected) 04/07/24 21:57 B. pertussis DNA (PCR) Not Detected (NotDetected) 04/07/24 21:57 B.parapertussis DNA PCR Not Detected (NotDetected) 04/07/24 21:57 C. pneumoniae DNA (PCR) Not Detected (NotDetected) 04/07/24 21:57 Coronavirus OC43 (PCR) Not Detected (NotDetected) 04/07/24 21:57 Coronavirus HKU1 (PCR) Not Detected (NotDetected) 04/07/24 21:57 Coronavirus 229E (PCR) Not Detected (NotDetected) 04/07/24 21:57 SARS-CoV-2 (PCR) Not Detected (NotDetected) 04/07/24 21:57 Coronavirus NL63 (PCR) Not Detected (NotDetected) 04/07/24 21:57 Human Metapneumovir PCR Not Detected (NotDetected) 04/07/24 21:57 Influenza Type B (PCR) Not Detected (NotDetected) 04/07/24 21:57 M. pneumoniae (PCR) Not Detected (NotDetected) 04/07/24 21:57 Parainfluenza 1 (PCR) Not Detected (NotDetected) 04/07/24 21:57 Parainfluenza 2 (PCR) Not Detected (NotDetected) 04/07/24 21:57 Parainfluenza 3 (PCR) Not Detected (NotDetected) 04/07/24 21:57 Parainfluenza 4 (PCR) Not Detected (NotDetected) 04/07/24 21:57 RSV (PCR) Not Detected (NotDetected) 04/07/24 21:57 Entero/Rhino (PCR) Not Detected (NotDetected) 04/07/24 21:57 Impressions Chest X-Ray 04/07/24 22:59 Exam(s): XR CXR 1 VIEW EXAM: XR Chest, 1 View CLINICAL HISTORY: Reason for exam: sob. TECHNIQUE: Frontal view of the chest. COMPARISON: No relevant prior studies available. FINDINGS: Lungs: Unremarkable. No consolidation. Pleural space: Unremarkable. No pneumothorax. Heart: Unremarkable. No cardiomegaly. Mediastinum: Unremarkable. Normal mediastinal contour. Bones/joints: Unremarkable. No acute fracture. IMPRESSION: Normal chest x-ray. Electronically signed by: Silvino Zamorano MD 04/08/24 01:21 AM Supervising Physician Co-Signing Physician Notes Patient seen and examined, chart reviewed, case discussed with Dr. Carter and I agree with the assessment and plan as above. In brief, patient is a 53yo male presenting with dyspnea, likely acute exacerbation of COPD in setting of Influenza A infection. Symptoms have been ongoing for several days Very diminished breath sounds bilaterally - no audible wheezing. ER reports patient receives very brief relief from neb treatments +S1/S2, regular, tachycardic No LE edema Labs and images reviewed Assessment/Plan COPD exacerbation in setting of influenza A -Scheduled nebulizer treatments -Solumedrol -Supplemental O2 as needed -Azithromycin -Tamiflu -Remainder of plan as above Resident Activity Tracking Resident Involvement: Resident Care Provided Care Provided: Adult Hospital Medicine (7) Hypertension Hypertension type: primary hypertension Qualified Code(s): I10 - Essential (primary) hypertension
[2024-04-08] MEDS ORDERED: GLUCAGON FOR INJ 1 MG VIAL SQ PRN (05:15)
[2024-04-08] MEDS ORDERED: DEXTROSE 50% 50 ML SYRINGE IV PRN (05:15)
[2024-04-08] MEDS ORDERED: GLUCOSE 10 TAB/TUBE PO PRN (05:15)
[2024-04-08] MEDS ORDERED: methylPREDNISolone 125 MG/2 ML VIAL IV SCH (05:15)
[2024-04-08] MEDS ORDERED: GLUCOSE 40% GEL 15 GM TUBE PO PRN (05:15)
[2024-04-08] MEDS ORDERED: CARBOHYDRATES FOR HYPOGLYCEMIA PO PRN (05:15)
[2024-04-08] MEDS ORDERED: ONDANSETRON INJ 2 MG/ML 2 ML VIAL IV PRN (05:15)
[2024-04-08] MEDS ORDERED: POLYETHYLENE (MIRALAX) 17 GM PACK PO PRN (05:15)
[2024-04-08] MEDS: ALBUT/IPRATROP 3MG/0.5MG NEB 3 ML VIAL NEB SCH (06:43)
[2024-04-08] MEDS: methylPREDNISolone 60 MG in SYRINGE 0 ML IV SCH (08:57)
[2024-04-08] MEDS: ENOXAPARIN INJ 40 MG/0.4 ML SYR SQ SCH (08:57)
[2024-04-08] MEDS: guaiFENesin 600 MG TABCR PO SCH (08:58)
[2024-04-08] MEDS: ROSUVASTATIN CALCIUM 10 MG TAB PO SCH (08:58)
[2024-04-08] MEDS: OSELTAMIVIR PHOSPHATE 75 MG CAP PO SCH (08:58)
[2024-04-08] MEDS: FAMOTIDINE 20 MG TAB PO SCH (08:58)
[2024-04-08] MEDS: buPROPion SR 100 MG TABCR PO SCH (08:58)
[2024-04-08] MEDS: FUROSEMIDE 20 MG TAB PO SCH (08:58)
[2024-04-08] MEDS: PANTOprazole 40 MG TAB PO SCH (08:58)
[2024-04-08] MEDS: LOSARTAN POTASSIUM 25 MG TAB PO SCH (08:58)
[2024-04-08] MEDS: AZITHROMYCIN 250 MG TAB PO SCH (08:58)
[2024-04-08] MEDS: FLUTICASONE FUROATE 200MCG 14 PUFFS/INHALER INH SCH (08:59)
[2024-04-08] MEDS: UMECLIDINIUM/VILANTEROL 62.5/25MCG 7 PUFFS/INHALER INH SCH (08:59)
[2024-04-08] MEDS ORDERED: NON-FORMULARY MEDICATION (Budesonide-Glycopyr-Formoterol [Breztri Aerosphere] 160-9-4.8 mc INH SCH (09:00)
[2024-04-08] MEDS: INSULIN ASPART PER UNIT CHARGE SC SCH (09:49)
[2024-04-08] MEDS: LANTUS PER UNIT CHARGE SQ SCH (09:50)
[2024-04-08] MEDS: TRINTELLIX~ORDER AWAITING ACTION SCH (11:23)
--- NOTE | 2024-04-08 14:55 | Billing Data ---
Date of Service April 08, 2024 Coding Level of Care Code 27450 INT INP/OBS CARE
[2024-04-08] MEDS: ACETAMINOPHEN 325 MG TAB PO PRN (22:44)
[2024-04-09 07:49] LABS: Hematocrit (blood only) 46.6 % (42.0-52.0); Mean Corpuscular Hemoglobin 31.9 pg (25.0-34.0); Mean Corpuscular Hgb Conc 34.3 g/dL (32.0-36.0); Mean Corpuscular Volume 92.8 fL (80.0-100.0); Mean Platelet Volume 10.9 fL (9.4-12.4); Platelet Count 197 K/uL (130-400); RDW Coefficient of Variation 13.1 % (11.5-14.5); RDW Standard Deviation 44.6 fL (36.4-46.3); Red Blood Count 5.02 M/uL (4.70-6.10); White Blood Count 10.41 K/ul (4.8-10.8)
[2024-04-09 08:07] LABS: Albumin Globulin Ratio 1.6 (0.9-2); Albumin Level 4.1 gm/dl (3.4-5.0); BUN Creatinine Ratio 16.7 (10-20); Bilirubin,Total 0.6 mg/dl (0.2-1.0); Calcium 9.3 mg/dl (8.6-10.3); Creatinine Clr Calc Pharmacy 105.4 ml/min; Globulin 2.6 gm/dl (2.5-4.0); Potassium 4.4 mmol/L (3.5-5.1); Total Protein 6.7 gm/dl (6.0-8.3)
[2024-04-09 08:29] LABS: Estimated Average Glucose 100 mg/dl; Hemoglobin A1C 5.1 % (4.5-5.6)
[2024-04-09] MEDS: BENZONATATE 100 MG CAPSULE PO PRN (09:04)
--- NOTE | 2024-04-09 11:06 | Hospitalist Progress Note ---
Date of Service April 09, 2024 Assessment & Plan (1) Acute exacerbation of chronic obstructive pulmonary disease (COPD): Plan: Solu-Medrol 60 mg q8h - DuoNeb q2h prn for breakthrough shortness of breath -Continue home inhalers -Oxygen supplementation as needed with oxygen goal of 88-92% -Continue azithromycin 250 mg p.o. daily (2) Influenza A: Plan: -Will order Tamiflu 75 mg twice daily -Supportive therapy with Mucinex and Tessalon Perles (3) Type 2 diabetes mellitus: Plan: Lantus and SSI ordered (4) DANIELITO (obstructive sleep apnea): Plan: CPAP hs (5) Dyslipidemia: Plan: Continue home Rosuvastatin (6) Depression: Plan: Continue home bupropion (7) Hypertension: Plan: Continue home Lasix (8) GERD (gastroesophageal reflux disease): Plan: Continue home pepcid and protonix Plan VTE ppx: Lovenox Code Status: FULL CODE Con't IV steroids, possible d/c in am 04/10 Admission and Anticipated Discharge Date Admission Date: April 08, 2024 Subjective Pt states he feel jittery this am, has been receiving nebs OTC. Review of Systems Review of Systems: CONST: Negative for fever, body aches and chills. HENT: Negative for neck pain/stiffness, headache, congestion, sore throat, swelling. EYES: Negative for discharge/pain or vision changes. RESP: Negative for cough/hemoptysis and shortness of breath. CV: Negative chest pain, difficulty breathing, palpitations. ABD: Negative pain, nausea, vomiting. : Negative increase frequency, dysuria, blood in urine or stool. MUSC: Negative for muscle aches, edema. SKIN: Negative rash, lesions/sores. NEURO: Negative headache, dizziness, weakness. Physical Exam Physical Exam: GENERAL APPEARANCE NAD, activity normal for age, well developed/ well nourished, no cyanosis, pallor, or diaphoresis. EYES lids/conjunctiva normal. EARS/NOSE/THROAT Mucous membranes moist, nares normal, lips/teeth normal uvula midline without oral pharyngeal erythema, exudate or swelling TMs normal bilaterally. No lymphangitis/lymphedema. HEAD/NECK normocephalic atraumatic, no facial trauma, neck is supple. RESPIRATORY respiratory effort normal, speaks in full sentences, no tripod position, no accessory muscle use. Lungs clear to auscultation without rhonchi, wheezes, rales CARDIAC Regular rate and rhythm, no edema. ABDOMINAL Soft, ND/NT. No evidence of fluid wave. No pulsatile masses on exam, rebound tenderness, Scott sign or pain over Mcburney's point. MUSCLES/EXTREMITIES No abnormal range of motion, no swelling. SKIN Warm, pink and dry. No rashes, dermatoses, petechiae or lesions. NEUROLOGICAL Speech is clear and appropriate. Normal level of consciousness. Gait and coordination are normal. 5/5 strength in all extremities. PSYCH Normal mood and affect. Judgement/competence is appropriate Results & Data Results & Data Vital Signs (Past 12 Hours) Vital Signs Temp Pulse Resp BP Pulse Ox O2 Del Method FiO2 04/09/24 10:50 36.6 C 94 H 19 137/79 96 Room Air 04/09/24 08:12 36.9 C 100 H 19 111/75 92 Room Air 04/09/24 07:22 79 17 97 Room Air 21 04/08/24 23:15 37.1 C 99 H 16 118/75 94 Room Air PG Care Time/CCT Total # of Minutes Spent Total Time Spent with Patient: Total time spent is greater than 50% in coordination of care (as documented) at patient's floor/unit and/or counseling patient: Coding Level of Care Code 60920 SUB INP/OBS CARE 2/35MIN Diagnoses Acute exacerbation of chronic obstructive pulmonary disease (COPD) J44.1 Influenza A J10.1 Type 2 diabetes mellitus E11.9 DANIELITO (obstructive sleep apnea) G47.33 Dyslipidemia E78.5 Depression F32.9 Primary hypertension I10 Hypertension type: primary hypertension GERD (gastroesophageal reflux disease) K21.9 (7) Hypertension Hypertension type: primary hypertension Qualified Code(s): I10 - Essential (primary) hypertension
[2024-04-09] MEDS: ALBUT/IPRATROP 3MG/0.5MG NEB 3 ML VIAL NEB PRN (21:14)
--- NOTE | 2024-04-09 21:29 | Electrocardiogram Report ---
Test Reason : Blood Pressure : */* mmHG Vent. Rate : 120 BPM Atrial Rate : 120 BPM P-R Int : 164 ms QRS Dur : 62 ms QT Int : 300 ms P-R-T Axes : 83 73 84 degrees QTcB Int : 424 ms Sinus tachycardia Nonspecific T wave abnormality Abnormal ECG When compared with ECG of 11-Jan-2024 12:06, Nonspecific T wave abnormality is now Present Confirmed by Erick De La Cruz ([id number]) on 04/09/2024 9:29:04 PM Referred By: REFERRED SELF Confirmed By: Erick De La Cruz
[2024-04-10 07:14] LABS: Hematocrit (blood only) 44.7 % (42.0-52.0); Hemoglobin 15.4 g/dl (14.0-18.0); Mean Corpuscular Hemoglobin 31.2 pg (25.0-34.0); Mean Corpuscular Hgb Conc 34.5 g/dL (32.0-36.0); Mean Corpuscular Volume 90.7 fL (80.0-100.0); Mean Platelet Volume 10.7 fL (9.4-12.4); Platelet Count 202 K/uL (130-400); RDW Coefficient of Variation 13.1 % (11.5-14.5); RDW Standard Deviation 43.1 fL (36.4-46.3); Red Blood Count 4.93 M/uL (4.70-6.10); White Blood Count 12.59 K/ul (4.8-10.8)
[2024-04-10 07:19] LABS: Albumin Globulin Ratio 1.5 (0.9-2); Albumin Level 3.7 gm/dl (3.4-5.0); BUN Creatinine Ratio 20.5 (10-20); Bilirubin,Total 0.5 mg/dl (0.2-1.0); Calcium 8.8 mg/dl (8.6-10.3); Creatinine Clr Calc Pharmacy 102.4 ml/min; Globulin 2.4 gm/dl (2.5-4.0); Potassium 4.5 mmol/L (3.5-5.1); Total Protein 6.1 gm/dl (6.0-8.3)
--- NOTE | 2024-04-10 10:28 | Hospitalist Progress Note ---
Date of Service April 10, 2024 Assessment & Plan (1) Acute exacerbation of chronic obstructive pulmonary disease (COPD): Plan: Solu-Medrol 60 mg q8h - DuoNeb q2h prn for breakthrough shortness of breath -Continue home inhalers -Oxygen supplementation as needed with oxygen goal of 88-92% -Continue azithromycin 250 mg p.o. daily (2) Influenza A: Plan: -Will order Tamiflu 75 mg twice daily -Supportive therapy with Mucinex and Tessalon Perles (3) Type 2 diabetes mellitus: Plan: Lantus and SSI ordered (4) DANIELITO (obstructive sleep apnea): Plan: CPAP hs (5) Dyslipidemia: Plan: Continue home Rosuvastatin (6) Depression: Plan: Continue home bupropion (7) Hypertension: Plan: Continue home Lasix (8) GERD (gastroesophageal reflux disease): Plan: Continue home pepcid and protonix Plan VTE ppx: Lovenox Code Status: FULL CODE Pt still with symptomatic SOB, will keep overnight for additional IV steroids. Plan for d/c 04/11. Admission and Anticipated Discharge Date Admission Date: April 08, 2024 Subjective Pt still feeling episode of SOB overnight. Review of Systems Review of Systems: CONST: Negative for fever, body aches and chills. HENT: Negative for neck pain/stiffness, headache, congestion, sore throat, swelling. EYES: Negative for discharge/pain or vision changes. RESP: Negative for cough/hemoptysis and shortness of breath. CV: Negative chest pain, difficulty breathing, palpitations. ABD: Negative pain, nausea, vomiting. : Negative increase frequency, dysuria, blood in urine or stool. MUSC: Negative for muscle aches, edema. SKIN: Negative rash, lesions/sores. NEURO: Negative headache, dizziness, weakness. Physical Exam Physical Exam: GENERAL APPEARANCE NAD, activity normal for age, well developed/ well nourished, no cyanosis, pallor, or diaphoresis. EYES lids/conjunctiva normal. EARS/NOSE/THROAT Mucous membranes moist, nares normal, lips/teeth normal uvula midline without oral pharyngeal erythema, exudate or swelling TMs normal bilaterally. No lymphangitis/lymphedema. HEAD/NECK normocephalic atraumatic, no facial trauma, neck is supple. RESPIRATORY respiratory effort normal, speaks in full sentences, no tripod position, no accessory muscle use. Lungs clear to auscultation without rhonchi, wheezes, rales CARDIAC Regular rate and rhythm, no edema. ABDOMINAL Soft, ND/NT. No evidence of fluid wave. No pulsatile masses on exam, rebound tenderness, Scott sign or pain over Mcburney's point. MUSCLES/EXTREMITIES No abnormal range of motion, no swelling. SKIN Warm, pink and dry. No rashes, dermatoses, petechiae or lesions. NEUROLOGICAL Speech is clear and appropriate. Normal level of consciousness. Gait and coordination are normal. 5/5 strength in all extremities. PSYCH Normal mood and affect. Judgement/competence is appropriate Results & Data Results & Data Vital Signs (Past 12 Hours) Vital Signs Temp Pulse Pulse Resp BP Pulse Ox Pulse Ox 04/10/24 10:20 36.6 C 71 18 114/69 91 04/10/24 07:48 69 04/10/24 07:15 36.6 C 93 H 19 144/84 H 93 04/10/24 07:08 04/10/24 05:00 97 04/10/24 03:02 36.6 C 81 18 114/74 97 04/10/24 01:35 92 H 04/09/24 22:26 O2 Del Method O2 Del Method 04/10/24 10:20 Room Air 04/10/24 07:48 04/10/24 07:15 Room Air 04/10/24 07:08 Room Air 04/10/24 05:00 Room Air 04/10/24 03:02 Room Air 04/10/24 01:35 04/09/24 22:26 Room Air PG Care Time/CCT Total # of Minutes Spent Total Time Spent with Patient: Total time spent is greater than 50% in coordination of care (as documented) at patient's floor/unit and/or counseling patient: Coding Level of Care Code 52858 SUB INP/OBS CARE 2/35MIN Diagnoses Acute exacerbation of chronic obstructive pulmonary disease (COPD) J44.1 Influenza A J10.1 Type 2 diabetes mellitus E11.9 DANIELITO (obstructive sleep apnea) G47.33 Dyslipidemia E78.5 Depression F32.9 Primary hypertension I10 Hypertension type: primary hypertension GERD (gastroesophageal reflux disease) K21.9 (7) Hypertension Hypertension type: primary hypertension Qualified Code(s): I10 - Essential (primary) hypertension
[2024-04-11 06:46] LABS: Hematocrit (blood only) 45.6 % (42.0-52.0); Hemoglobin 15.7 g/dl (14.0-18.0); Mean Corpuscular Hemoglobin 31.5 pg (25.0-34.0); Mean Corpuscular Hgb Conc 34.4 g/dL (32.0-36.0); Mean Corpuscular Volume 91.6 fL (80.0-100.0); Mean Platelet Volume 10.4 fL (9.4-12.4); Platelet Count 189 K/uL (130-400); RDW Coefficient of Variation 12.8 % (11.5-14.5); RDW Standard Deviation 43.5 fL (36.4-46.3); Red Blood Count 4.98 M/uL (4.70-6.10); White Blood Count 10.42 K/ul (4.8-10.8)
[2024-04-11 07:08] LABS: Albumin Globulin Ratio 1.7 (0.9-2); Albumin Level 3.7 gm/dl (3.4-5.0); BUN Creatinine Ratio 19.8 (10-20); Bilirubin,Total 0.5 mg/dl (0.2-1.0); Calcium 8.8 mg/dl (8.6-10.3); Creatinine Clr Calc Pharmacy 107.7 ml/min; Globulin 2.2 gm/dl (2.5-4.0); Potassium 4.4 mmol/L (3.5-5.1); Total Protein 5.9 gm/dl (6.0-8.3)
--- NOTE | 2024-04-11 10:53 | Hospitalist Progress Note ---
Date of Service April 11, 2024 Assessment & Plan (1) Acute exacerbation of chronic obstructive pulmonary disease (COPD): Plan: Solu-Medrol 60 mg q8h - DuoNeb q2h prn for breakthrough shortness of breath -Continue home inhalers -Oxygen supplementation as needed with oxygen goal of 88-92% -Continue azithromycin 250 mg p.o. daily -added Robitussin with codeine to help with cough symptoms. (2) Influenza A: Plan: -Will order Tamiflu 75 mg twice daily -Supportive therapy with Mucinex and Tessalon Perles (3) Type 2 diabetes mellitus: Plan: Lantus and SSI ordered (4) DANIELITO (obstructive sleep apnea): Plan: CPAP hs (5) Dyslipidemia: Plan: Continue home Rosuvastatin (6) Depression: Plan: Continue home bupropion (7) Hypertension: Plan: Continue home Lasix (8) GERD (gastroesophageal reflux disease): Plan: Continue home pepcid and protonix Plan VTE ppx: Lovenox Code Status: FULL CODE Pt still with symptomatic SOB, will keep overnight for additional IV steroids. Plan for d/c 04/11. Admission and Anticipated Discharge Date Admission Date: April 08, 2024 Subjective Pt still feeling episode of SOB overnight. Review of Systems Review of Systems: CONST: Negative for fever, body aches and chills. HENT: Negative for neck pain/stiffness, headache, congestion, sore throat, swelling. EYES: Negative for discharge/pain or vision changes. RESP: Negative for cough/hemoptysis and shortness of breath. CV: Negative chest pain, difficulty breathing, palpitations. ABD: Negative pain, nausea, vomiting. : Negative increase frequency, dysuria, blood in urine or stool. MUSC: Negative for muscle aches, edema. SKIN: Negative rash, lesions/sores. NEURO: Negative headache, dizziness, weakness. Physical Exam Physical Exam: GENERAL APPEARANCE NAD, activity normal for age, well developed/ well nourished, no cyanosis, pallor, or diaphoresis. EYES lids/conjunctiva normal. EARS/NOSE/THROAT Mucous membranes moist, nares normal, lips/teeth normal uvula midline without oral pharyngeal erythema, exudate or swelling TMs normal bilaterally. No lymphangitis/lymphedema. HEAD/NECK normocephalic atraumatic, no facial trauma, neck is supple. RESPIRATORY respiratory effort normal, speaks in full sentences, no tripod position, no accessory muscle use. Lungs clear to auscultation without rhonchi, wheezes, rales CARDIAC Regular rate and rhythm, no edema. ABDOMINAL Soft, ND/NT. No evidence of fluid wave. No pulsatile masses on exam, r ebound tenderness, Scott sign or pain over Mcburney's point. MUSCLES/EXTREMITIES No abnormal range of motion, no swelling. SKIN Warm, pink and dry. No rashes, dermatoses, petechiae or lesions. NEUROLOGICAL Speech is clear and appropriate. Normal level of consciousness. Gait and coordination are normal. 5/5 strength in all extremities. PSYCH Normal mood and affect. Judgement/competence is appropriate Results & Data Results & Data Vital Signs (Past 12 Hours) Vital Signs Temp Pulse Pulse Resp BP Pulse Ox O2 Del Method 04/11/24 10:15 36.7 C 88 18 128/73 97 Room Air 04/11/24 08:56 81 20 96 Room Air 04/11/24 07:06 36.6 C 80 18 119/75 92 Room Air 04/11/24 07:00 Room Air 04/11/24 03:06 36.5 C 69 18 136/79 92 Room Air 04/10/24 23:03 36.7 C 83 18 119/69 93 Room Air 04/10/24 22:59 72 PG Care Time/CCT Total # of Minutes Spent Total Time Spent with Patient: Total time spent is greater than 50% in coordination of care (as documented) at patient's floor/unit and/or counseling patient: Coding Level of Care Code 23311 SUB INP/OBS CARE 2/35MIN Diagnoses Acute exacerbation of chronic obstructive pulmonary disease (COPD) J44.1 Influenza A J10.1 Type 2 diabetes mellitus E11.9 DANIELITO (obstructive sleep apnea) G47.33 Dyslipidemia E78.5 Depression F32.9 Primary hypertension I10 Hypertension type: primary hypertension GERD (gastroesophageal reflux disease) K21.9 (7) Hypertension Hypertension type: primary hypertension Qualified Code(s): I10 - Essential (primary) hypertension
[2024-04-12 10:04] VITALS: O2SAT 97
[2024-04-12 11:26] VITALS: BP 125/78; PULSE 78; RESP 19; TEMP 98.1
--- NOTE | 2024-04-12 12:35 | Discharge Summary ---
Discharge Summary Date of Service April 12, 2024 Principal Dx & Hospital Course #1 = Principal Diagnosis (1) Acute exacerbation of chronic obstructive pulmonary disease (COPD): Solu-Medrol 60 mg q8h - DuoNeb q2h prn for breakthrough shortness of breath -Continue home inhalers -Oxygen supplementation as needed with oxygen goal of 88-92% -Continue azithromycin 250 mg p.o. daily -added Robitussin with codeine to help with cough symptoms. (2) Influenza A: -Will order Tamiflu 75 mg twice daily -Supportive therapy with Mucinex and Tessalon Perles (3) Type 2 diabetes mellitus: Lantus and SSI ordered (4) DANIELITO (obstructive sleep apnea): CPAP hs (5) Dyslipidemia: Continue home Rosuvastatin (6) Depression: Continue home bupropion (7) Hypertension: Continue home Lasix (8) GERD (gastroesophageal reflux disease): Continue home pepcid and protonix Plan VTE ppx: Lovenox Code Status: FULL CODE Pt still with symptomatic SOB, will keep overnight for additional IV steroids. Plan for d/c 04/12 Admission HPI Per Admitting Provider Patient is a 53-year-old male with past medical history of COPD, DANIELITO (on home CPAP), diabetes type 2, hyperlipidemia, MDD, hypertension, and GERD who arrived to the emergency department due to worsening shortness of breath. Patient states that a week ago he started having flulike symptoms that included productive cough, nausea and vomiting, fatigue, as well as an associated chest tightness. After 2 to 3 days of symptom onset, patient states that symptoms did begin to improve, however they began to worsen again pretty soon after. Since yesterday, patient states that he has been having progressively worsening shortness of breath that was not resolved with home nebulizer treatments as well as an associated chest tightness that is localized to the central aspect of his chest without any radiation. 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 Denies any current tobacco use, and states that he stopped smoking tobacco products 7 years ago. Denies any fevers, chills, weakness, palpitations, tachycardia, chest pain, or any other systemic symptoms. ED Course: Patient given Solu-Medrol 60 mg x 1, DuoNeb x 3 with minimal improvement in shortness of breath and quick return of symptoms after treatment was completed, and Ativan 0.25 mg x 1. Patient requiring oxygen via nasal cannula 2 L/min at time of arrival to ED but by the time of evaluation patient was breathing at room air and was at the time completing the nebulizer tx. Labs/Imaging: CBC without leukocytosis and stable hemoglobin at 16.5, platelets of 225. CMP without electrolyte abnormalities and renal markers within reference range. Troponin is negative at 4.1. Bio fire negative. Swab positive for influenza A. Chest x-ray without any acute process. Medical History: [Reviewed] Medications: [Reviewed] Surgical History: [Reviewed] Family history: [Reviewed] Allergies: [Reviewed] Social History: [Reviewed] Code Status: FULL CODE Discharge Exam GENERAL APPEARANCE NAD, activity normal for age, well developed/ well nourished, no cyanosis, pallor, or diaphoresis. EYES lids/conjunctiva normal. EARS/NOSE/THROAT Mucous membranes moist, nares normal, lips/teeth normal uvula midline without oral pharyngeal erythema, exudate or swelling TMs normal bilaterally. No lymphangitis/lymphedema. HEAD/NECK normocephalic atraumatic, no facial trauma, neck is supple. RESPIRATORY respiratory effort normal, speaks in full sentences, no tripod position, no accessory muscle use. Lungs clear to auscultation without rhonchi, wheezes, rales CARDIAC Regular rate and rhythm, no edema. ABDOMINAL Soft, ND/NT. No evidence of fluid wave. No pulsatile masses on exam, rebound tenderness, Scott sign or pain over Mcburney's point. MUSCLES/EXTREMITIES No abnormal range of motion, no swelling. SKIN Warm, pink and dry. No rashes, dermatoses, petechiae or lesions. NEUROLOGICAL Speech is clear and appropriate. Normal level of consciousness. Gait and coordination are normal. 5/5 strength in all extremities. PSYCH Normal mood and affect. Judgement/competence is appropriate Discharge Plan Discharge Items Patient Disposition: Home - Self-Care Reason For Visit: SHORTNESS OF BREATH Discharge Diagnosis: COPD exacerbation Activity: Resume your previous activity Non-emergency contact: Primary Care Provider Call non-emergency contact if: you have any medication questions Follow-up/Referrals: Reji Ga DO [Primary Care Provider] - Diet: Regular Addtl Attending Provider Instructions: Follow up with PMD in 2 weeks Pending Studies at Discharge: No Stand-Alone Forms: My [facility], Smoking Cessation Medications and DC Order Prescriptions: New prednisone 10 mg tablet 10 mg PO DAILY Qty: 30 0RF Rx Instructions: Take 4 tabs x 2days, then 3 tabs x 2days then 2 tabs x 2days then 1 tab x 2 days Continued (DME) nebulizers [facility] See Rx Instructions miscellaneous .MEDSUPPLY Qty: 1 0RF Rx Instructions: Use 4 times daily or as directed with nebulizer solution. Lifetime need. (DME) nebulizers [Aeroneb Go Nebulizer] [facility] See Rx Instructions .MEDSUPPLY Qty: 1 0RF Rx Instructions: With tubing and supplies. J44.9. J45.9. (DME) FreeStyle Mehul 2 Sensor Kit See Rx Instructions .ROUTE .MEDSUPPLY Qty: 2 11RF Rx Instructions: Change every 14 days with a new sensor benzonatate 100 mg capsule 100 mg PO BID Qty: 90 1RF furosemide [Lasix] 20 mg tablet 20 mg PO BID Qty: 180 3RF Rx Instructions: Take one tablet in the morning, take one tablet in the evening. insulin aspart U-100 [Novolog FlexPen U-100 Insulin] 100 unit/mL (3 mL) insulin pen 6 unit subcut TID MDD 18 units Qty: 30 3RF Hold Instructions: Home Medication placed on hold at Doctor's office insulin glargine [Lantus Solostar U-100 Insulin] 100 unit/mL (3 mL) insulin pen 6 unit subcut DAILY Qty: 15 3RF Hold Instructions: Home Medication placed on hold at Doctor's office (DME) blood sugar diagnostic Strip See Rx Instructions .ROUTE .MEDSUPPLY Qty: 200 3RF Rx Instructions: testing two times a day. One Touch Ultra Blue (DME) lancets [facility] See Rx Instructions .ROUTE .MEDSUPPLY Qty: 200 3RF Rx Instructions: Test blood sugar twice a day (DME) pen needle, diabetic [BD Ultra-Fine Tammie Pen Needle] 32 gauge x 5/32" needle See Rx Instructions .Route Qty: 400 3RF Rx Instructions: Use 4 per day azelastine 137 mcg (0.1 %) aerosol,spray 1 spray intranasal BID Qty: 30 2RF Rx Instructions: administer into each nostril (DME) Flutter Valve Device See Rx Instructions .MEDSUPPLY Qty: 1 0RF Rx Instructions: Use it every 6 hours when awake. ascorbate calcium (vitamin C) 500 mg tablet 500 mg PO DAILY zinc gluconate 30 mg tablet 30 mg PO DAILY magnesium 250 mg tablet 250 mg PO DAILY levocetirizine 5 mg tablet 5 mg PO DAILY PRN (Reason: allergy symptoms) Rx Instructions: Take daily for 10 days then PRN mecobalamin (vitamin B12) 5,000 mcg tablet,chewable 5,000 mcg PO DAILY (DME) Auto Titrating CPAP Misc See Rx Instructions .MEDSUPPLY Qty: 1 0RF Rx Instructions: Auto PAP with 5-15cm H20. Lifetime usage. G47.33 (DME) CPAP Supplies Misc See Rx Instructions .MEDSUPPLY Qty: 1 0RF Rx Instructions: CPAP supplies, nasal pillow mask, headgear, filters, tubing, water chamber. G47.33 clonazepam 1 mg tablet 1 - 2 mg PO DAILY PRN (Reason: Anxiety AND PANIC) betamethasone dipropionate 0.05 % lotion 1 applic topical DAILY Qty: 60 1RF Rx Instructions: Apply to areas of the scalp once daily at bedtime for up to 2 weeks as needed for flaring. Breztri Aerosphere 160-9-4.8 mcg/actuation HFA aerosol inhaler 2 inh inhalation BID Qty: 3 2RF albuterol sulfate [Ventolin HFA] 90 mcg/actuation HFA aerosol inhaler 2 inh INH Q4H PRN (Reason: Shortness Of Breath Or Wheezing) Qty: 2 5RF ipratropium-albuterol 0.5 mg-3 mg(2.5 mg base)/3 mL solution for nebulization 3 ml inhalation Q8H PRN (Reason: shortness of breath or wheezing) Qty: 180 1RF montelukast [Singulair] 10 mg tablet 10 mg PO QPM Qty: 30 7RF Patient Comments: QAM azithromycin 250 mg tablet 250 mg PO .COMPLEX Qty: 36 2RF Rx Instructions: 250 mg PO 1 tab p.o. on Fmygko-Rhfdthkbh-Lvmuxi; Mucinex DM 30-600 mg tablet extended release 12 hr 1 tab PO Q12H PRN (Reason: cough) Qty: 90 2RF Rx Instructions: Take 1 tab twice daily for 5 days and then as needed Mounjaro 12.5 mg/0.5 mL pen injector 12.5 mg subcut ONCE Qty: 6 5RF Rx Instructions: Inject once a week. losartan 25 mg tablet 25 mg PO DAILY Qty: 90 1RF Rx Instructions: Take one tablet once daily by mouth. rosuvastatin 10 mg tablet 10 mg PO DAILY Qty: 90 1RF Rx Instructions: Take 1 tablet once daily by mouth. cholecalciferol (vitamin D3) [Vitamin D3] 125 mcg (5,000 unit) tablet 50 mcg PO DAILY bupropion HCl 200 mg tablet sustained-release 12 hr 200 mg PO QAM famotidine 20 mg tablet 20 mg PO BID Rx Instructions: TAKE AT LUNCH AND BEDTIME pantoprazole 40 mg tablet,delayed release (DR/EC) 40 mg PO BID Rx Instructions: TAKE 30-60 MINUTES PRIOR TO EATING BREAKFAST AND DINNER Trintellix 20 mg tablet 20 mg PO QAM Discharge Orders: Discharge Order (Routine); Ordered 04/12/24 Ordered By: Jules Brooke Admission Data Admit Date/Time: 04/08/24 03:09 Attending Provider: Jules Brooke Admit Provider: Debra Carter Primary Care Provider: Reji Ga Other Providers: Shanda Contreras Hospital Stay Data Consultations 04/08/24 02:25 ED Decision to Admit Stat Pending Results Patient Have Any Pending Studies at Discharge: No Discharge Instructions Given to Patient (Per Discharging Provider) Follow up with PMD in 2 weeks Total Time Total Time Spent Total Time Spent (In Minutes): 50 Coding Level of Care Code 25659 INP/OBS DISCH >30 MIN Diagnoses Acute exacerbation of chronic obstructive pulmonary disease (COPD) J44.1 Influenza A J10.1 Type 2 diabetes mellitus E11.9 DANIELITO (obstructive sleep apnea) G47.33 Dyslipidemia E78.5 Depression F32.9 Primary hypertension I10 Hypertension type: primary hypertension GERD (gastroesophageal reflux disease) K21.9
--- NOTE | 2024-04-12 13:29 | Communication Note ---
Date of Service: April 12, 2024 codeine-guaifenesin Rx sent on behalf of Dr Brooke (technical difficulties with ERx) - pharmacy called in regards to clonazepam being on home med list. pt has not had clonazepam while admitted - would not want him taking it while he's taking the codeine, but since he has not needed it while inpatient, and the clonazepam is strictly prn, would not have him take clonazepam until he is done with the codeine/guaifenesin
== END 2024-04-12 14:35 | disposition home or self-care (01) | DRG 190 ==
LOC: ED 21:30 → EDINP 04-08 03:09 → SUATTDRO 04-08 03:09 → 2S 04-08 05:14

== ENCOUNTER 2024-04-14 18:24 | Inpatient (IN) ==
--- NOTE | 2024-04-14 18:38 | Emergency Department Note ---
Impression & Plan Sepsis, Pneumonia, Influenza A virus subtype H1 2009 pandemic strain present, Acute respiratory failure with hypoxia, COPD (chronic obstructive pulmonary disease) ED Provider Note NAME: SHAHEED HORAN AGE: 53 SEX: M : 1970 ARRIVES VIA: Ambulance INFORMANT: Patient ED PROVIDER(S): Blaine Pool MD CHIEF COMPLAINT: Shortness of breath. PLAN: Disposition: Admit MEDICAL DECISION MAKING: The patient is a pleasant 53-year-old gentleman with a past medical history of COPD, DANIELITO (on home CPAP), diabetes type 2, hyperlipidemia, MDD, hypertension, and GERD with recent admission to this facility (04/08-04/12) for influenza A who presents to the emergency department via EMS for evaluation of acute worsening shortness of breath with chest tightness in his right chest with development of fevers last night and into today. He denies nausea, vomiting, diarrhea. He has any urinary symptoms. On evaluation the patient is in mild respiratory distress with wheezes and rhonchi of right greater than left lung espinoza with mild increased work of breathing. He appears clinically dry. No he is febrile to 39.3 with heart in the 110s, blood pressure 150s/90s and O2 saturation 83% on room air improving to low-mid 90s on 6 L nasal cannula. Sepsis protocol was initiated. EKG without overt acute ischemia. CXR demonstrates extensive area of consolidation throughout the right lung consistent with pneumonia per my preliminary review/independent interpretation. WBC 14.8 K with neutrophilia but no left shift. H/H and platelets within normal limits. VBG with pH of 7.5 and pCO2 of 36 in the setting of patient's tachypnea. Chemistry without metabolic acidosis. Total bilirubin is 1.1 with direct bilirubin 0.4, nonspecific with LFTs otherwise normal. HS troponin 12.6, within normal limits. BNP within normal limits. Lactate 1.3, wnl. Procalcitonin is elevated at 1.64. Patient's respiratory BioFire remains positive for influenza A H1 2009. Blood cultures were obtained and patient was treated with empiric ceftriaxone initially however following review of his chest x-ray antibiotic coverage was broadened with Zosyn, doxycycline and vancomycin. MRSA swab is pending. 2 L normal saline was administered. Full 30 cc/KG was deferred given potential for volume overload given patient's extensive pulmonary infiltrates. Given the patient's acute respiratory failure with hypoxia the patient does agree with plan for admission for further management. Vital signs with trending improvement following initiation of treatment. Case was discussed with MACIEL Schmid hospitalist, who will evaluate the patient for admission. Further management per admitting team. Triage Nursing notes reviewed and agree them. Prior/external medical records reviewed Vital Signs: reviewed Differential diagnosis: Reactive airway disease, pneumonia, pneumothorax, COPD, CHF, infections, cardiac ischemia, pulmonary embolism, musculoskeletal, gastrointestinal, as well as other pathologies. ER treatment provided: See below. Diagnostics interpreted by me: ECG: Sinus tachycardia, 122 bpm, no ectopy, no overt ST elevation or depression, QTc 444, QRS 78. Cardiac Monitoring: An order for continuous cardiac monitoring was placed and demonstrated sinus tachycardia, 122 bpm, no ectopy. Laboratory studies: See below Imaging studies: See below Consultation(s): Case was discussed with MACIEL Schmid hospitalist, who will evaluate the patient for admission. HPI: The patient is a pleasant 53-year-old gentleman with a past medical history of COPD, DANIELITO (on home CPAP), diabetes type 2, hyperlipidemia, MDD, hypertension, and GERD with recent admission to this facility (04/08-04/12) for influenza A who presents to the emergency department via EMS for evaluation of acute worsening shortness of breath with chest tightness in his right chest with development of fevers last night and into today. He denies nausea, vomiting, diarrhea. He has any urinary symptoms. ROS: See above HPI for pertinent positives & negatives. A total of 10 systems reviewed and were otherwise negative. VITALS:See Below PHYSICAL EXAMINATION: GENERAL: Awake, alert, uncomfortable-appearing, in no distress. BMI 39.0. HENT: Normocephalic, atraumatic. Oropharynx with dry mucous membranes and otherwise unremarkable. EYES: Normal conjunctiva. Sclera non-icteric. NECK: Supple. No nuchal rigidity. FROM. No JVD. RESPIRATORY: Wheezes and rhonchi of right greater than the left lung espinoza with mild increased work of breathing. CARDIAC: Tachycardic rate, normal rhythm. Extremities warm and well perfused. Pulses equal. ABDOMEN: Soft, non-distended. No tenderness to palpation. No rebound or guarding. No masses. MUSCULOSKELETAL: Chest examination reveals no tenderness. The back is symmetrical on inspection without obvious abnormality. There is no CVA tenderness to palpation. No joint edema. LOWER EXTREMITIES: Calves are equal size bilaterally and non-tender. No edema. No discoloration. NEURO: Normal sensorium. No sensory or motor deficits noted. SKIN: No rash or jaundice noted. ED COURSE: Critical Care: I have personally spent greater than 35 minutes of critical care time in the direct management of this patient. This includes bedside care, interpretation of diagnostic studies, and testing, discussion with consultants, patient, and family members, and other required patient management activities. This 35 minutes is in excess of all separately billable procedures. Blaine Pool MD Past Med/Surg History Problem List (Updated 04/14/24 @ 20:52 by Blaine Pool MD) COPD (chronic obstructive pulmonary disease) (Acute) Acute respiratory failure with hypoxia (Acute) Influenza A virus subtype H1 2009 pandemic strain present (Acute) Pneumonia (Acute) Sepsis (Acute) Dehydration (Acute) Acute exacerbation of chronic obstructive pulmonary disease (COPD) (Acute) Influenza A (Acute) Dyspnea (Acute) Type 2 diabetes mellitus DANIELITO (obstructive sleep apnea) Dyslipidemia Chronic bronchitis Allergic rhinitis with postnasal drip Hypersomnia Exertional shortness of breath COPD with emphysema Depression History of tobacco use Calcified granuloma of lung Insulin-requiring or dependent type II diabetes mellitus Hypertension Obesity Type 2 diabetes mellitus, controlled Abdominal pain Edema leg GERD (gastroesophageal reflux disease) Encounter for pre-operative examination Nasal congestion Frontal headache Chronic sinusitis Shortness of breath FOLLOWS WITH PULMONOLOGY (REASON FOR PREDNISONE) ? DX Emphysema of lung Dyspnea (Acute) Medical History Bulging disc LUMBAR Degenerative disc disease Environmental allergies Surgical History H/O shoulder surgery RT History of tooth extraction History of tonsillectomy Family History Mother Diabetes COPD (chronic obstructive pulmonary disease) Father Diabetes Coronary heart disease Grandmother (Maternal) Family history of diabetes mellitus Social History Smoking Status: Former smoker Tobacco Type: Cigarettes Age Started Using Tobacco: 12; Age Quit Using Tobacco: 46; packs per day: 1.5; Second Hand Exposure: Yes ( A CHILD); Do You Dip or Chew Tobacco: No; Hx Alcohol Use: Yes Alcohol type: beer Hx Substance Use: No Preferred Language: Ukrainian Communication Ability: Effective Bottom Cager Required: No Beliefs That Will Affect Care: None marital status: Current Living Situation: Spouse Current Living Situation Comment: at home life partner Feels Safe at Home: Yes Assistive Devices: CPAP Allergies Allergies Allergy/AdvReac Type Severity Reaction Status Date / Time No Known Drug Allergies Allergy Verified 03/19/24 15:48 Home Meds Home Medications Medication Instructions Recorded Confirmed ascorbate calcium (vitamin C) 500 500 mg PO DAILY 06/05/20 04/08/24 mg tablet cholecalciferol (vitamin D3) 125 50 mcg PO DAILY 06/05/20 04/08/24 mcg (5,000 unit) tablet (Vitamin D3) magnesium 250 mg tablet 250 mg PO DAILY 06/05/20 04/08/24 zinc gluconate 30 mg tablet 30 mg PO DAILY 06/05/20 04/08/24 levocetirizine 5 mg tablet 5 mg PO DAILY PRN allergy symptoms 01/18/22 04/08/24 mecobalamin (vitamin B12) 5,000 5,000 mcg PO DAILY 02/10/23 04/08/24 mcg chewable tablet clonazepam 1 mg tablet 1 - 2 mg PO DAILY PRN Anxiety AND 12/05/23 04/08/24 PANIC bupropion HCl 200 mg tablet,12 hr 200 mg PO QAM 04/08/24 04/08/24 sustained-release famotidine 20 mg tablet 20 mg PO BID 04/08/24 04/08/24 pantoprazole 40 mg tablet,delayed 40 mg PO BID 04/08/24 04/08/24 release vortioxetine 20 mg tablet 20 mg PO QAM 04/08/24 04/08/24 (Trintellix) Previous Rx's Medication Instructions Recorded nebulizers #1 ea 11/25/20 azelastine 137 mcg (0.1 %) nasal 1 spray intranasal BID #30 mL 06/21/22 spray Flutter Valve #1 ea 06/22/22 nebulizers (Aeroneb Go Nebulizer) #1 ea 06/23/22 flash glucose sensor (FreeStyle #2 ea 10/29/22 Mehul 2 Sensor kit) benzonatate 100 mg capsule 100 mg PO BID #90 caps 12/07/22 Auto Titrating CPAP #1 ea 02/16/23 CPAP Supplies #1 ea 02/16/23 furosemide 20 mg tablet (Lasix) 20 mg PO BID #180 tabs 07/18/23 betamethasone dipropionate 0.05 % 1 applic topical DAILY #60 mL 09/07/23 lotion blood sugar diagnostic #200 ea 12/28/23 insulin aspart U-100 100 unit/mL 6 unit (0.06 mL) subcut TID #30 mL 12/28/23 (3 mL) subcutaneous pen (Novolog FlexPen U-100 Insulin aspart) insulin glargine 100 unit/mL (3 6 unit (0.06 mL) subcut DAILY #15 12/28/23 mL) subcutaneous pen (Lantus mL Solostar U-100 Insulin) lancets #200 ea 12/28/23 pen needle, diabetic 32 gauge x #400 ea 01/13/24 5/32" (BD Ultra-Fine Tammie Pen Needle) albuterol sulfate 90 mcg/actuation 2 inh inhalation Q4H PRN Shortness 01/24/24 aerosol inhaler (Ventolin HFA) Of Breath Or Wheezing #2 Inhalers azithromycin 250 mg tablet 250 mg PO .COMPLEX #36 tabs 01/24/24 budesonide 160 mcg-glycopyr 9 2 inh inhalation BID #3 Inhalers 01/24/24 mcg-formot 4.8 mcg/actuation HFA inhaler (Breztri Aerosphere) dextromethorphan-guaifenesin 30 1 tab PO Q12H PRN cough #90 tabs 01/24/24 mg-600 mg tablet extended roihwja23 hr (Mucinex DM) ipratropium 0.5 mg-albuterol 3 mg 3 ml inhalation Q8H PRN shortness 01/24/24 (2.5 mg base)/3 mL nebulization of breath or wheezing #180 mL soln montelukast 10 mg tablet 10 mg PO QPM #30 tabs 01/24/24 (Singulair) losartan 25 mg tablet 25 mg PO DAILY #90 tabs 03/19/24 rosuvastatin 10 mg tablet 10 mg PO DAILY #90 tabs 03/19/24 tirzepatide 12.5 mg/0.5 mL 12.5 mg (0.5 mL) subcut ONCE #6 mL 03/19/24 subcutaneous pen injector (Berenice) codeine 10 mg-guaifenesin 100 mg/5 10 ml PO Q6H PRN cough #120 mL 04/12/24 mL oral liquid prednisone 10 mg tablet 10 mg PO DAILY #30 tabs 04/12/24 Results & Data (ED) Vital Signs Vital Signs - 24 hr 04/14/24 18:29 04/14/24 18:30 04/14/24 18:33 Temperature 39.3 C H Temperature Source Oral Pulse Rate 119 H 124 H Pulse Rate [Apical] Pulse Rate from SpO2 Sensor Respiratory Rate 20 Respiratory Depth Normal Blood Pressure 152/90 H Blood Pressure [Left Arm] Blood Pressure Mean 110 Blood Pressure Mean [Left Arm] Blood Pressure Position Semi-fowlers Blood Pressure Position [Left Arm] Pulse Oximetry 83 L Oxygen Delivery Method Room Air Nasal Cannula Oxygen Flow Rate Sepsis Recent Fever Within 48 Hours Yes Sepsis New/Unexplained Change in Mental Status No Sepsis Action Taken by Nursing Physician Notified Oxygen Flow Rate - Titration 6 Pulse Oximetry Post Tiitration 90 04/14/24 18:33 04/14/24 18:33 04/14/24 19:03 Temperature Temperature Source Pulse Rate Pulse Rate [Apical] 119 H 110 H Pulse Rate from SpO2 Sensor Respiratory Rate 20 17 Respiratory Depth Blood Pressure Blood Pressure [Left Arm] 117/69 Blood Pressure Mean Blood Pressure Mean [Left Arm] 85 Blood Pressure Position Blood Pressure Position [Left Arm] Semi-fowlers Pulse Oximetry 90 90 95 Oxygen Delivery Method Nasal Cannula Nasal Cannula Nasal Cannula Oxygen Flow Rate 6 6 6 Sepsis Recent Fever Within 48 Hours Sepsis New/Unexplained Change in Mental Status Sepsis Action Taken by Nursing Oxygen Flow Rate - Titration Pulse Oximetry Post Tiitration 04/14/24 19:06 04/14/24 19:30 04/14/24 19:45 Temperature 38.0 C H Temperature Source Oral Pulse Rate 108 H Pulse Rate [Apical] 105 H Pulse Rate from SpO2 Sensor 108 H Respiratory Rate 13 20 Respiratory Depth Blood Pressure Blood Pressure [Left Arm] 124/69 Blood Pressure Mean Blood Pressure Mean [Left Arm] 87 Blood Pressure Position Blood Pressure Position [Left Arm] Semi-fowlers Pulse Oximetry 93 94 Oxygen Delivery Method Nasal Cannula Oxygen Flow Rate 6 Sepsis Recent Fever Within 48 Hours Sepsis New/Unexplained Change in Mental Status Sepsis Action Taken by Nursing Oxygen Flow Rate - Titration Pulse Oximetry Post Tiitration 04/14/24 20:00 Temperature Temperature Source Pulse Rate Pulse Rate [Apical] 104 H Pulse Rate from SpO2 Sensor Respiratory Rate 21 Respiratory Depth Blood Pressure Blood Pressure [Left Arm] 134/73 Blood Pressure Mean Blood Pressure Mean [Left Arm] 93 Blood Pressure Position Blood Pressure Position [Left Arm] Pulse Oximetry 94 Oxygen Delivery Method Nasal Cannula Oxygen Flow Rate 6 Sepsis Recent Fever Within 48 Hours Sepsis New/Unexplained Change in Mental Status Sepsis Action Taken by Nursing Oxygen Flow Rate - Titration Pulse Oximetry Post Tiitration Laboratory Data Attestation: I reviewed the patient's lab results. 04/14/24 18:39 04/14/24 18:39 Lab Results 04/14/24 04/14/24 Range/Units 18:39 18:45 WBC 14.83 H (4.8-10.8) K/ul RBC 5.06 (4.70-6.10) M/uL Hgb 16.0 (14.0-18.0) g/dl Hct 44.7 (42.0-52.0) % MCV 88.3 (80.0-100.0) fL MCH 31.6 (25.0-34.0) pg MCHC 35.8 (32.0-36.0) g/dL RDW Std Deviation 42.3 (36.4-46.3) fL RDW Coeff of Barby 13.0 (11.5-14.5) % Plt Count 169 (130-400) K/uL MPV 10.9 (9.4-12.4) fL Immature Gran % (Auto) 1.3 % Neut % (Auto) 81.8 % Lymph % (Auto) 11.8 % Beaver % (Auto) 4.9 % Eos % (Auto) 0.1 % Baso % (Auto) 0.1 % Neut # (Auto) 12.11 H (1.40-6.50) K/uL Lymph # (Auto) 1.75 (1.20-3.40) K/uL [place] # (Auto) 0.73 H (0.11-0.59) K/uL Eos # (Auto) 0.02 (0.00-0.50) K/uL Baso # (Auto) 0.02 (0.00-0.20) K/uL Immature Gran # (Auto) 0.20 (0.01-0.20) K/uL PT Cancelled INR Cancelled VBG pH 7.50 H (7.36-7.41) VBG pCO2 36 L (38-50) mmHg VBG pO2 52 mmHg VBG HCO3 28 mmol/L VBG O2 Saturation 85.9 % VBG Base Excess 4.9 mEq/L Sodium 131 L (136-145) mmol/L Potassium 4.0 (3.5-5.1) mmol/L Chloride 98 (98-107) mmol/L Carbon Dioxide 26 (21-32) mmol/L Anion Gap 7 (3-11) BUN 11 (6-23) mg/dl Creatinine 0.92 (0.6-1.4) mg/dl Est Cr Clr Drug Dosing 124.5 ml/min eGFR 98.85 BUN/Creatinine Ratio 12.0 (10-20) Glucose 111 H (70-99(Fasting)) mg/dl Lactate 1.3 (0.4-2.0) mmol/L Calcium 8.7 (8.6-10.3) mg/dl Magnesium 2.0 (1.7-2.4) mg/dl Total Bilirubin 1.1 H (0.2-1.0) mg/dl Direct Bilirubin 0.4 H (0-0.2) mg/dl AST 17 (13-39) U/L ALT 27 (7-52) U/L Alkaline Phosphatase 56 (34-104) U/L Troponin I High Sens 12.6 (0-20) pg/ml B-Natriuretic Peptide 71 (0-100) pg/ml Total Protein 6.2 (6.0-8.3) gm/dl Albumin 3.2 L (3.4-5.0) gm/dl Procalcitonin 1.64 H (0-0.5) ng/ml Nasal Influ A H1 2008 PCR DETECTED A (NotDetected) Adenovirus (PCR) Not Detected (NotDetected) B. pertussis DNA (PCR) Not Detected (NotDetected) B.parapertussis DNA PCR Not Detected (NotDetected) C. pneumoniae DNA (PCR) Not Detected (NotDetected) Coronavirus OC43 (PCR) Not Detected (NotDetected) Coronavirus HKU1 (PCR) Not Detected (NotDetected) Coronavirus 229E (PCR) Not Detected (NotDetected) SARS-CoV-2 (PCR) Not Detected (NotDetected) Coronavirus NL63 (PCR) Not Detected (NotDetected) Human Metapneumovir PCR Not Detected (NotDetected) Influenza Type B (PCR) Not Detected (NotDetected) M. pneumoniae (PCR) Not Detected (NotDetected) Parainfluenza 1 (PCR) Not Detected (NotDetected) Parainfluenza 2 (PCR) Not Detected (NotDetected) Parainfluenza 3 (PCR) Not Detected (NotDetected) Parainfluenza 4 (PCR) Not Detected (NotDetected) RSV (PCR) Not Detected (NotDetected) Entero/Rhino (PCR) Not Detected (NotDetected) Administered Medications Sodium Chloride (Nss) 1,000 mls @ 999 mls/hr IV .Q1H1M GRACE Stop: 04/14/24 21:00 Last Admin: 04/14/24 19:58 Dose: 999 mls/hr Documented By: Infusion: 04/14/24 19:57 Dose: Infused Documented By: Admin: 04/14/24 18:50 Dose: 999 mls/hr Documented By: SOUMYA Discontinued Medications Albuterol (Albut/Ipratrop 3mg/0.5mg Neb 3 Ml Vial) 3 ml NEB NOW STA; Protocol Stop: 04/14/24 18:49 Last Admin: 04/14/24 19:03 Dose: 3 ml Documented By: SOUMYA Guaifenesin (Guaifenesin 600 Mg Tabcr) 1,200 mg PO NOW STA Stop: 04/14/24 18:47 Last Admin: 04/14/24 18:52 Dose: 1,200 mg Documented By: SOUMYA Acetaminophen (Ofirmev) 1,000 mg in 100 mls @ 400 mls/hr IV NOW STA Stop: 04/14/24 19:00 Last Infusion: 04/14/24 19:13 Dose: Infused Documented By: Admin: 04/14/24 18:57 Dose: 400 mls/hr Documented By: SOUMYA Ceftriaxone Sodium (Rocephin) 2,000 mg in 50 mls @ 100 mls/hr IV NOW STA Stop: 04/14/24 19:17 Last Infusion: 04/14/24 19:27 Dose: Infused Documented By: Admin: 04/14/24 18:57 Dose: 100 mls/hr Documented By: SOUMYA Piperacillin Sod/Tazobactam Sod (Zosyn) 4.5 gm in 100 mls @ 200 mls/hr IV NOW ONE; Protocol Stop: 04/14/24 20:18 Last Admin: 04/14/24 20:05 Dose: 200 mls/hr Documented By: SOUMYA Methylprednisolone (Methylprednisolone 125 Mg/2 Ml Vial) 125 mg IV NOW STA Stop: 04/14/24 18:47 Last Admin: 04/14/24 18:55 Dose: 125 mg Documented By: SOUMYA Imaging Data Radiologist's Impression: Chest X-Ray 04/14/24 18:33 Chest radiograph, one view History: Sepsis Comparison: April 07, 2024 Findings: Single AP view of the chest performed. Large area of consolidation throughout the right lung. No pneumothorax. The cardiomediastinal silhouette is within normal limits. Normal pulmonary vascularity. No visualized bony or soft tissue abnormality. Impression: Large area of consolidation throughout the right lung, most consistent with pneumonia, given the history of sepsis. Electronically signed by Shaheed Holbrook 04-14-2024 7:21 PM Discharge Plan Visit Data Chief Complaint: Shortness of Breath/Dyspnea Stated Complaint: SOB ED Provider: Blaine Pool Discharge Problem: Sepsis, Pneumonia, Influenza A virus subtype H1 2009 pandemic strain present, Acute respiratory failure with hypoxia, COPD (chronic obstructive pulmonary disease) Forms Stand Alone Forms: [facility] Prescriptions Prescriptions: No Action (DME) nebulizers [facility] [place] See Rx Instructions miscellaneous .MEDSUPPLY Qty: 1 0RF Rx Instructions: Use 4 times daily or as directed with nebulizer solution. Lifetime need. (DME) nebulizers [Aeroneb Go Nebulizer] Mis See Rx Instructions .MEDSUPPLY Qty: 1 0RF Rx Instructions: With tubing and supplies. J44.9. J45.9. (DME) FreeStyle Mehul 2 Sensor Kit See Rx Instructions .ROUTE .MEDSUPPLY Qty: 2 11RF Rx Instructions: Change every 14 days with a new sensor benzonatate 100 mg capsule 100 mg PO BID Qty: 90 1RF furosemide [Lasix] 20 mg tablet 20 mg PO BID Qty: 180 3RF Rx Instructions: Take one tablet in the morning, take one tablet in the evening. insulin aspart U-100 [Novolog FlexPen U-100 Insulin] 100 unit/mL (3 mL) insulin pen 6 unit subcut TID MDD 18 units Qty: 30 3RF Hold Instructions: Home Medication placed on hold at Doctor's office insulin glargine [Lantus Solostar U-100 Insulin] 100 unit/mL (3 mL) insulin pen 6 unit subcut DAILY Qty: 15 3RF Hold Instructions: Home Medication placed on hold at Doctor's office (DME) blood sugar diagnostic Strip See Rx Instructions .ROUTE .MEDSUPPLY Qty: 200 3RF Rx Instructions: testing two times a day. One Touch Ultra Blue (DME) lancets Misc See Rx Instructions .ROUTE .MEDSUPPLY Qty: 200 3RF Rx Instructions: Test blood sugar twice a day (DME) pen needle, diabetic [BD Ultra-Fine Tammie Pen Needle] 32 gauge x 5/32" needle See Rx Instructions .Route Qty: 400 3RF Rx Instructions: Use 4 per day azelastine 137 mcg (0.1 %) aerosol,spray 1 spray intranasal BID Qty: 30 2RF Rx Instructions: administer into each nostril (DME) Flutter Valve Device See Rx Instructions .MEDSUPPLY Qty: 1 0RF Rx Instructions: Use it every 6 hours when awake. ascorbate calcium (vitamin C) 500 mg tablet 500 mg PO DAILY zinc gluconate 30 mg tablet 30 mg PO DAILY magnesium 250 mg tablet 250 mg PO DAILY levocetirizine 5 mg tablet 5 mg PO DAILY PRN (Reason: allergy symptoms) Rx Instructions: Take daily for 10 days then PRN mecobalamin (vitamin B12) 5,000 mcg tablet,chewable 5,000 mcg PO DAILY (DME) Auto Titrating CPAP Misc See Rx Instructions .MEDSUPPLY Qty: 1 0RF Rx Instructions: Auto PAP with 5-15cm H20. Lifetime usage. G47.33 (DME) CPAP Supplies Misc See Rx Instructions .MEDSUPPLY Qty: 1 0RF Rx Instructions: CPAP supplies, nasal pillow mask, headgear, filters, tubing, water chamber. G47.33 clonazepam 1 mg tablet 1 - 2 mg PO DAILY PRN (Reason: Anxiety AND PANIC) betamethasone dipropionate 0.05 % lotion 1 applic topical DAILY Qty: 60 1RF Rx Instructions: Apply to areas of the scalp once daily at bedtime for up to 2 weeks as needed for flaring. Meytri Aerosphere 160-9-4.8 mcg/actuation HFA aerosol inhaler 2 inh inhalation BID Qty: 3 2RF albuterol sulfate [Ventolin HFA] 90 mcg/actuation HFA aerosol inhaler 2 inh INH Q4H PRN (Reason: Shortness Of Breath Or Wheezing) Qty: 2 5RF ipratropium-albuterol 0.5 mg-3 mg(2.5 mg base)/3 mL solution for nebulization 3 ml inhalation Q8H PRN (Reason: shortness of breath or wheezing) Qty: 180 1RF montelukast [Singulair] 10 mg tablet 10 mg PO QPM Qty: 30 7RF Patient Comments: QAM azithromycin 250 mg tablet 250 mg PO .COMPLEX Qty: 36 2RF Rx Instructions: 250 mg PO 1 tab p.o. on Urkdho-Dzoztbuur-Pvgyuo; Mucinex DM 30-600 mg tablet extended release 12 hr 1 tab PO Q12H PRN (Reason: cough) Qty: 90 2RF Rx Instructions: Take 1 tab twice daily for 5 days and then as needed Mounjaro 12.5 mg/0.5 mL pen injector 12.5 mg subcut ONCE Qty: 6 5RF Rx Instructions: Inject once a week. losartan 25 mg tablet 25 mg PO DAILY Qty: 90 1RF Rx Instructions: Take one tablet once daily by mouth. rosuvastatin 10 mg tablet 10 mg PO DAILY Qty: 90 1RF Rx Instructions: Take 1 tablet once daily by mouth. cholecalciferol (vitamin D3) [Vitamin D3] 125 mcg (5,000 unit) tablet 50 mcg PO DAILY bupropion HCl 200 mg tablet sustained-release 12 hr 200 mg PO QAM famotidine 20 mg tablet 20 mg PO BID Rx Instructions: TAKE AT LUNCH AND BEDTIME pantoprazole 40 mg tablet,delayed release (DR/EC) 40 mg PO BID Rx Instructions: TAKE 30-60 MINUTES PRIOR TO EATING BREAKFAST AND DINNER Trintellix 20 mg tablet 20 mg PO QAM prednisone 10 mg tablet 10 mg PO DAILY Qty: 30 0RF Rx Instructions: Take 4 tabs x 2days, then 3 tabs x 2days then 2 tabs x 2days then 1 tab x 2 days codeine-guaifenesin 10-100 mg/5 mL Liquid 10 ml PO Q6H PRN (Reason: cough) Qty: 120 0RF Rx Instructions: caution drowsiness Referrals Referrals: Reji Ga DO [Primary Care Provider] - Discharge Problem: Sepsis Qualifiers: Sepsis type: sepsis due to unspecified organism Sepsis acute organ dysfunction status: with acute organ dysfunction Severe sepsis acute organ dysfunction type: acute respiratory failure Acute respiratory failure type: with hypoxia Severe sepsis shock status: without septic shock Qualified Code(s): A41.9 - Sepsis, unspecified organism Pneumonia Qualifiers: Pneumonia type: due to unspecified organism Laterality: right Lung location: l ower lobe of lung Qualified Code(s): J18.9 - Pneumonia, unspecified organism COPD (chronic obstructive pulmonary disease) Qualifiers: COPD type: COPD with acute lower respiratory infection Qualified Code(s): J44.0 - Chronic obstructive pulmonary disease with (acute) lower respiratory infection
[2024-04-14] MEDS: SODIUM CHLORIDE 0.9% 1,000 ML IV SCH (18:50)
[2024-04-14] MEDS: guaiFENesin 600 MG TABCR PO STA (18:52)
[2024-04-14] MEDS: methylPREDNISolone 125 MG/2 ML VIAL IV STA (18:55)
[2024-04-14] MEDS: cefTRIAXone SODIUM 2,000 MG/50 ML BAG IV STA (18:57)
[2024-04-14] MEDS: ACETAMINOPHEN 1,000 MG/100 ML VIAL IV STA (18:57)
[2024-04-14] MEDS: ALBUT/IPRATROP 3MG/0.5MG NEB 3 ML VIAL NEB STA (19:03)
[2024-04-14 19:04] LABS: Base Excess VBG 4.9 mEq/L; HCO3 VBG 28 mmol/L; Oxygen Saturation VBG 85.9 %; PCO2 VBG 36 mmHg (38-50); PO2 VBG 52 mmHg
[2024-04-14 19:06] LABS: Basophils # (auto) 0.02 K/uL (0.00-0.20); Basophils % (auto) 0.1 %; Eosinophils # (auto) 0.02 K/uL (0.00-0.50); Eosinophils % (auto) 0.1 %; Hematocrit (blood only) 44.7 % (42.0-52.0); Immature Granulocytes % (auto) 1.3 %; Lymphocytes # (auto) 1.75 K/uL (1.20-3.40); Lymphocytes % (auto) 11.8 %; Mean Corpuscular Hemoglobin 31.6 pg (25.0-34.0); Mean Corpuscular Hgb Conc 35.8 g/dL (32.0-36.0); Mean Corpuscular Volume 88.3 fL (80.0-100.0); Mean Platelet Volume 10.9 fL (9.4-12.4); Monocytes # (auto) 0.73 K/uL (0.11-0.59); Monocytes % (auto) 4.9 %; Neutrophils # (auto) 12.11 K/uL (1.40-6.50); Neutrophils % (auto) 81.8 %; Platelet Count 169 K/uL (130-400); RDW Standard Deviation 42.3 fL (36.4-46.3); Red Blood Count 5.06 M/uL (4.70-6.10); White Blood Count 14.83 K/ul (4.8-10.8)
--- NOTE | 2024-04-14 19:22 | XRay Report ---
Chest radiograph, one view History: Sepsis Comparison: April 07, 2024 Findings: Single AP view of the chest performed. Large area of consolidation throughout the right lung. No pneumothorax. The cardiomediastinal silhouette is within normal limits. Normal pulmonary vascularity. No visualized bony or soft tissue abnormality. Impression: Large area of consolidation throughout the right lung, most consistent with pneumonia, given the history of sepsis. Electronically signed by Shaheed Holbrook 04-14-2024 7:21 PM
[2024-04-14 19:28] LABS: Albumin Level 3.2 gm/dl (3.4-5.0); Bilirubin Direct 0.4 mg/dl (0-0.2); Bilirubin,Total 1.1 mg/dl (0.2-1.0); Calcium 8.7 mg/dl (8.6-10.3); Creatinine Clr Calc Pharmacy 124.5 ml/min; Total Protein 6.2 gm/dl (6.0-8.3)
[2024-04-14 19:33] LABS: Troponin I High Sensitivity 12.6 pg/ml (0-20)
[2024-04-14] MEDS ORDERED: VANCOMYCIN CONSULT ACTIVE PRN ×2 (19:53→22:16)
[2024-04-14 20:03] LABS: Adenovirus PCR Not Detected (NotDetected); Bordetella parapertussis PCR Not Detected (NotDetected); Bordetella pertussis PCR Not Detected (NotDetected); Chlamydia pneumoniae PCR Not Detected (NotDetected); Coronavirus 229E PCR Not Detected (NotDetected); Coronavirus CoV-2 (COVID19)PCR Not Detected (NotDetected); Coronavirus HKU1 PCR Not Detected (NotDetected); Coronavirus NL63 PCR Not Detected (NotDetected); Coronavirus OC43PCR Not Detected (NotDetected); Human Metapneumovirus PCR Not Detected (NotDetected); Influenza A (H1 2009) PCR DETECTED (NotDetected); Influenza B PCR Not Detected (NotDetected); Mycoplasma pneumoniae PCR Not Detected (NotDetected); Parainfluenza Virus 1 PCR Not Detected (NotDetected); Parainfluenza Virus 2 PCR Not Detected (NotDetected); Parainfluenza Virus 3 PCR Not Detected (NotDetected); Parainfluenza Virus 4 PCR Not Detected (NotDetected); Respiratory Syncytial VirusPCR Not Detected (NotDetected); Rhinovirus/Enterovirus PCR Not Detected (NotDetected)
[2024-04-14] MEDS: PIPERACILLIN/TAZOBACTAM 4.5 GM/100 ML BAG IV ONE (20:05)
--- NOTE | 2024-04-14 20:26 | History & Physical Report ---
Date of Service April 14, 2024 Assessment & Plan (1) Acute respiratory failure with hypoxia: (2) Pneumonia involving right lung: (3) Influenza A virus subtype H1 2009 pandemic strain present: (4) Acute exacerbation of chronic obstructive pulmonary disease (COPD): Plan The patient is a 53-year-old male with a past medical history including COPD, diabetes mellitus type 2, DANIELITO, dyslipidemia, chronic bronchitis, hypersomnia, history of tobacco use, history of lung granuloma, insulin requiring diabetes mellitus type 2, hypertension, GERD and morbid obesity. He was most recently mated to [facility] from 04/08-04/12/2023 for influenza A subtype H1 2009 pandemic strain and COPD exacerbation. He had had some improvement in symptoms, however, since discharge had gradually More short of breath, producing green- yellow mucus, and having worsening right sided chest discomfort. He presented to the emergency department, was found to have a new right lower lobe and right middle lobe infiltrate, was found to have pulse ox 83% on room air, and was referred for evaluation for admission. #Acute respiratory failure with hypoxia/pneumonia involving right middle and right lower lobe/COPD exacerbation- Likely secondary bacterial infection after having completed Tamiflu course for influenza A H1 subtype 2009 pandemic strain From the ED received the following: Solu-Medrol 125 mg IV, vancomycin IV, doxycycline 100 mg IV, and Zosyn 4.5 g IV, +1 L normal saline bolus Admit on the following: Vancomycin IV per pharmacokinetic monitoring Doxycycline 100 mg IV every 12 hours Zosyn 4.5 g IV every 8 hours Methylprednisolone 40 mg IV every 8 hours Hycodan syrup 10 mL p.o. every 6 hours as needed severe cough Respiratory BioFire ordered, and confirms persistence of influenza A subtype H1 2009 pandemic strain MRSA swab Continue montelukast Pulse ox initially 83% on room air, has improved and will target 92% on nasal cannula oxygen DuoNebs 4 times daily, and every 2 hours as needed #Obstructive sleep apnea- Patient has not worn CPAP recently Will place an order for CPAP to use at bedtime as needed Likely element of obesity hypoventilation syndrome as well #Insulin requiring diabetes mellitus- Continue glargine 6 units subcu daily Placed on Accu-Cheks with NovoLog SSI Hold tirzepatide #Chronic medical issues: Anxiety-continue bupropion, Trintellix and clonazepam GERD-continue pantoprazole Hyperlipidemia-continue rosuvastatin Hypertension-continue losartan. Hold furosemide History of Present Illness Chief Complaint: The patient presents to the emergency department with complaint of worsening shortness of breath, dyspnea on exertion, right sided chest discomfort with deep inspiration, since having been discharged from [facility] after admission from 04/08-04/12/2024 for influenza A infection. Primary Care Provider: Reji Ga DO The patient is a 53-year-old male with a past medical history including COPD, diabetes mellitus type 2, DANIELITO, dyslipidemia, chronic bronchitis, hypersomnia, history of tobacco use, history of lung granuloma, insulin requiring diabetes mellitus type 2, hypertension, GERD and morbid obesity. He was most recently mated to [facility] from 04/08-04/12/2023 for influenza A subtype H1 2009 pandemic strain and COPD exacerbation. He had had some improvement in symptoms, however, since discharge had gradually More short of breath, producing green- yellow mucus, and having worsening right sided chest discomfort. He presented to the emergency department, was found to have a new right lower lobe and right middle lobe infiltrate, was found to have pulse ox 83% on room air, and was referred for evaluation for admission. Allergies Allergy/AdvReac Type Severity Reaction Status Date / Time No Known Drug Allergies Allergy Verified 03/19/24 15:48 Home Medications Medication Instructions Recorded Confirmed Type ascorbate calcium (vitamin C) 500 500 mg PO DAILY 06/05/20 04/08/24 History mg tablet cholecalciferol (vitamin D3) 125 50 mcg PO DAILY 06/05/20 04/08/24 History mcg (5,000 unit) tablet (Vitamin D3) magnesium 250 mg tablet 250 mg PO DAILY 06/05/20 04/08/24 History zinc gluconate 30 mg tablet 30 mg PO DAILY 06/05/20 04/08/24 History nebulizers #1 ea 11/25/20 04/08/24 Rx levocetirizine 5 mg tablet 5 mg PO DAILY PRN allergy symptoms 01/18/22 04/08/24 History azelastine 137 mcg (0.1 %) nasal 1 spray intranasal BID #30 mL 06/21/22 04/08/24 Rx spray Flutter Valve #1 ea 06/22/22 04/08/24 Rx nebulizers (Aeroneb Go Nebulizer) #1 ea 06/23/22 04/08/24 Rx flash glucose sensor (FreeStyle #2 ea 10/29/22 04/08/24 Rx Mehul 2 Sensor kit) benzonatate 100 mg capsule 100 mg PO BID #90 caps 12/07/22 04/08/24 Rx mecobalamin (vitamin B12) 5,000 5,000 mcg PO DAILY 02/10/23 04/08/24 History mcg chewable tablet Auto Titrating CPAP #1 ea 02/16/23 04/08/24 Rx CPAP Supplies #1 ea 02/16/23 04/08/24 Rx furosemide 20 mg tablet (Lasix) 20 mg PO BID #180 tabs 07/18/23 04/08/24 Rx betamethasone dipropionate 0.05 % 1 applic topical DAILY #60 mL 09/07/23 04/08/24 Rx lotion clonazepam 1 mg tablet 1 - 2 mg PO DAILY PRN Anxiety AND 12/05/23 04/08/24 History PANIC blood sugar diagnostic #200 ea 12/28/23 04/08/24 Rx insulin aspart U-100 100 unit/mL 6 unit (0.06 mL) subcut TID #30 mL 12/28/23 04/08/24 Rx (3 mL) subcutaneous pen (Novolog FlexPen U-100 Insulin aspart) insulin glargine 100 unit/mL (3 6 unit (0.06 mL) subcut DAILY #15 12/28/23 04/08/24 Rx mL) subcutaneous pen (Lantus mL Solostar U-100 Insulin) lancets #200 ea 12/28/23 04/08/24 Rx pen needle, diabetic 32 gauge x #400 ea 01/13/24 04/08/24 Rx 5/32" (BD Ultra-Fine Tammie Pen Needle) albuterol sulfate 90 mcg/actuation 2 inh inhalation Q4H PRN Shortness 01/24/24 04/08/24 Rx aerosol inhaler (Ventolin HFA) Of Breath Or Wheezing #2 Inhalers azithromycin 250 mg tablet 250 mg PO .COMPLEX #36 tabs 01/24/24 04/08/24 Rx budesonide 160 mcg-glycopyr 9 2 inh inhalation BID #3 Inhalers 01/24/24 04/08/24 Rx mcg-formot 4.8 mcg/actuation HFA inhaler (Breztri Aerosphere) dextromethorphan-guaifenesin 30 1 tab PO Q12H PRN cough #90 tabs 01/24/24 04/08/24 Rx mg-600 mg tablet extended hr (Mucinex DM) ipratropium 0.5 mg-albuterol 3 mg 3 ml inhalation Q8H PRN shortness 01/24/24 04/08/24 Rx (2.5 mg base)/3 mL nebulization of breath or wheezing #180 mL soln montelukast 10 mg tablet 10 mg PO QPM #30 tabs 01/24/24 04/08/24 Rx (Singulair) losartan 25 mg tablet 25 mg PO DAILY #90 tabs 03/19/24 04/08/24 Rx rosuvastatin 10 mg tablet 10 mg PO DAILY #90 tabs 03/19/24 04/08/24 Rx tirzepatide 12.5 mg/0.5 mL 12.5 mg (0.5 mL) subcut ONCE #6 mL 03/19/24 04/08/24 Rx subcutaneous pen injector (Kevinunjaandre) bupropion HCl 200 mg tablet,12 hr 200 mg PO QAM 04/08/24 04/08/24 History sustained-release famotidine 20 mg tablet 20 mg PO BID 04/08/24 04/08/24 History pantoprazole 40 mg tablet,delayed 40 mg PO BID 04/08/24 04/08/24 History release vortioxetine 20 mg tablet 20 mg PO QAM 04/08/24 04/08/24 History (Trintellix) codeine 10 mg-guaifenesin 100 mg/5 10 ml PO Q6H PRN cough #120 mL 04/12/24 Rx mL oral liquid prednisone 10 mg tablet 10 mg PO DAILY #30 tabs 04/12/24 Rx Past Med/Surg History Problem List (Updated 04/14/24 @ 21:27 by Nash Resendez MD) Pneumonia involving right lung COPD (chronic obstructive pulmonary disease) (Acute) Acute respiratory failure with hypoxia (Acute) Influenza A virus subtype H1 2009 pandemic strain present (Acute) Pneumonia (Acute) Sepsis (Acute) Dehydration (Acute) Acute exacerbation of chronic obstructive pulmonary disease (COPD) (Acute) Influenza A (Acute) Dyspnea (Acute) Type 2 diabetes mellitus DANIELITO (obstructive sleep apnea) Dyslipidemia Chronic bronchitis Allergic rhinitis with postnasal drip Hypersomnia Exertional shortness of breath COPD with emphysema Depression History of tobacco use Calcified granuloma of lung Insulin-requiring or dependent type II diabetes mellitus Hypertension Obesity Type 2 diabetes mellitus, controlled Abdominal pain Edema leg GERD (gastroesophageal reflux disease) Encounter for pre-operative examination Nasal congestion Frontal headache Chronic sinusitis Shortness of breath FOLLOWS WITH PULMONOLOGY (REASON FOR PREDNISONE) ? DX Emphysema of lung Dyspnea (Acute) Medical History Bulging disc LUMBAR Degenerative disc disease Environmental allergies Surgical History H/O shoulder surgery RT History of tooth extraction History of tonsillectomy Family History Mother Diabetes COPD (chronic obstructive pulmonary disease) Father Diabetes Coronary heart disease Grandmother (Maternal) Family history of diabetes mellitus Social History Smoking Status: Former smoker Tobacco Type: Cigarettes Age Started Using Tobacco: 12; Age Quit Using Tobacco: 46; packs per day: 1.5; Second Hand Exposure: Yes ( A CHILD); Do You Dip or Chew Tobacco: No; Hx Alcohol Use: Yes Alcohol type: beer Hx Substance Use: No Preferred Language: Nicaraguan Communication Ability: Effective Senior Salesforce Developer Required: No Beliefs That Will Affect Care: None marital status: Current Living Situation: Spouse Current Living Situation Comment: at home life partner Feels Safe at Home: Yes Assistive Devices: CPAP Review of Systems Review of Systems: The patient denies palpitations, lower extremity swelling, sore throat, fevers, chills, sweats, nausea, vomiting, diarrhea , constipation, abdominal pain, pelvic pain, blood in urine or stool, dysuria, urinary frequency or urgency, lightheadedness, dizziness, headache, memory loss, loss of consciousness, rash, abnormal bruising or bleeding, imbalance, focal or generalized weakness, numbness or tingling in arms or legs, generalized arthralgias or myalgias, back or neck pain, or night sweats. The review of systems is otherwise negative other than for that already noted above, and at least 10 systems have been reviewed. Physical Exam Physical Exam: The patient is awake, alert and oriented 3, well developed and well nourished, normocephalic and atraumatic, lying in bed and in mild respiratory distress, improved on oxygen HEENT--PERRL, EOMI, mucous membranes and oropharynx normal Neck--supple. No JVD. No bruits. Thyroid normal, trachea midline, no adenopathy. Heart--normal S1 and S2. No murmurs, rubs or gallops. Lungs--decreased breath sounds right base to snf up. Mild respiratory distress, no accessory muscle use. Abdomen--normal bowel sounds and soft. Nontender. Nondistended. Obese Extremities--no cyanosis or clubbing. No edema. There are good distal pulses b/l. Dermatologic--normal skin turgor, normal color, no abnormal lymph nodes, no rash. Neurologic--cranial nerves II through XII grossly intact. Rheumatologic--normal range of motion. Psychiatric--normal affect. Results & Data Results & Data Vital Signs (Past 12 Hours) Vital Signs Temp Pulse Pulse Resp BP BP Pulse Ox 04/14/24 20:00 104 H 21 134/73 94 04/14/24 19:45 38.0 C H 04/14/24 19:30 105 H 20 124/69 94 04/14/24 19:06 108 H 13 93 04/14/24 19:03 110 H 17 117/69 95 04/14/24 18:33 90 04/14/24 18:33 119 H 20 90 04/14/24 18:33 04/14/24 18:30 124 H 04/14/24 18:29 39.3 C H 119 H 20 152/90 H 83 L O2 Del Method O2 Flow Rate 04/14/24 20:00 Nasal Cannula 6 04/14/24 19:45 04/14/24 19:30 Nasal Cannula 6 04/14/24 19:06 04/14/24 19:03 Nasal Cannula 6 04/14/24 18:33 Nasal Cannula 6 04/14/24 18:33 Nasal Cannula 6 04/14/24 18:33 Nasal Cannula 04/14/24 18:30 04/14/24 18:29 Room Air Laboratory Results Laboratory Results WBC 14.83 K/ul (4.8-10.8) H 04/14/24 18:39 RBC 5.06 M/uL (4.70-6.10) 04/14/24 18:39 Hgb 16.0 g/dl (14.0-18.0) 04/14/24 18:39 Hct 44.7 % (42.0-52.0) 04/14/24 18:39 MCV 88.3 fL (80.0-100.0) 04/14/24 18:39 MCH 31.6 pg (25.0-34.0) 04/14/24 18:39 MCHC 35.8 g/dL (32.0-36.0) 04/14/24 18:39 RDW Std Deviation 42.3 fL (36.4-46.3) 04/14/24 18:39 RDW Coeff of Barby 13.0 % (11.5-14.5) 04/14/24 18:39 Plt Count 169 K/uL (130-400) 04/14/24 18:39 MPV 10.9 fL (9.4-12.4) 04/14/24 18:39 Immature Gran % (Auto) 1.3 % 04/14/24 18:39 Neut % (Auto) 81.8 % 04/14/24 18:39 Lymph % (Auto) 11.8 % 04/14/24 18:39 Brooks % (Auto) 4.9 % 04/14/24 18:39 Eos % (Auto) 0.1 % 04/14/24 18:39 Baso % (Auto) 0.1 % 04/14/24 18:39 Neut # (Auto) 12.11 K/uL (1.40-6.50) H 04/14/24 18:39 Lymph # (Auto) 1.75 K/uL (1.20-3.40) 04/14/24 18:39 Brooks # (Auto) 0.73 K/uL (0.11-0.59) H 04/14/24 18:39 Eos # (Auto) 0.02 K/uL (0.00-0.50) 04/14/24 18:39 Baso # (Auto) 0.02 K/uL (0.00-0.20) 04/14/24 18:39 Immature Gran # (Auto) 0.20 K/uL (0.01-0.20) 04/14/24 18:39 PT Cancelled 04/14/24 18:39 INR Cancelled 04/14/24 18:39 VBG pH 7.50 (7.36-7.41) H 04/14/24 18:39 VBG pCO2 36 mmHg (38-50) L 04/14/24 18:39 VBG pO2 52 mmHg 04/14/24 18:39 VBG HCO3 28 mmol/L 04/14/24 18:39 VBG O2 Saturation 85.9 % 04/14/24 18:39 VBG Base Excess 4.9 mEq/L 04/14/24 18:39 Sodium 131 mmol/L (136-145) L 04/14/24 18:39 Potassium 4.0 mmol/L (3.5-5.1) 04/14/24 18:39 Chloride 98 mmol/L (98-107) 04/14/24 18:39 Carbon Dioxide 26 mmol/L (21-32) 04/14/24 18:39 Anion Gap 7 (3-11) 04/14/24 18:39 BUN 11 mg/dl (6-23) 04/14/24 18:39 Creatinine 0.92 mg/dl (0.6-1.4) 04/14/24 18:39 Est Cr Clr Drug Dosing 124.5 ml/min 04/14/24 18:39 eGFR 98.85 04/14/24 18:39 BUN/Creatinine Ratio 12.0 (10-20) 04/14/24 18:39 Glucose 111 mg/dl (70-99(Fasting)) H 04/14/24 18:39 Lactate 1.3 mmol/L (0.4-2.0) 04/14/24 18:39 Calcium 8.7 mg/dl (8.6-10.3) 04/14/24 18:39 Magnesium 2.0 mg/dl (1.7-2.4) 04/14/24 18:39 Total Bilirubin 1.1 mg/dl (0.2-1.0) H 04/14/24 18:39 Direct Bilirubin 0.4 mg/dl (0-0.2) H 04/14/24 18:39 AST 17 U/L (13-39) 04/14/24 18:39 ALT 27 U/L (7-52) 04/14/24 18:39 Alkaline Phosphatase 56 U/L (34-104) 04/14/24 18:39 Troponin I High Sens 12.6 pg/ml (0-20) 04/14/24 18:39 B-Natriuretic Peptide 71 pg/ml (0-100) 04/14/24 18:39 Total Protein 6.2 gm/dl (6.0-8.3) 04/14/24 18:39 Albumin 3.2 gm/dl (3.4-5.0) L 04/14/24 18:39 Procalcitonin 1.64 ng/ml (0-0.5) H 04/14/24 18:39 Urine Color Yellow 04/14/24 21:00 Urine Appearance Clear (Clear) 04/14/24 21:00 Urine pH 8.0 (4.5-7.5) H 04/14/24 21:00 Ur Specific [place] 1.018 (1.000-1.030) 04/14/24 21:00 Urine Protein 1+ (Negative) H 04/14/24 21:00 Urine Glucose (UA) Negative (Negative) 04/14/24 21:00 Urine Ketones 1+ (Negative) H 04/14/24 21:00 Urine Blood Negative (Negative) 04/14/24 21:00 Urine Nitrite Negative (Negative) 04/14/24 21:00 Urine Bilirubin Negative (Negative) 04/14/24 21:00 Urine Urobilinogen Negative (Negative) 04/14/24 21:00 Ur Leukocyte Esterase Negative (Negative) 04/14/24 21:00 Urine WBC (Auto) 0-5 /hpf (0-5) 04/14/24 21:00 Urine RBC (Auto) 0-2 /hpf (0-2) 04/14/24 21:00 U Hyaline Cast (Auto) 0-2 /lpf (0-2) 04/14/24 21:00 U Epithel Cells (Auto) 0-2 /hpf (0-2) 04/14/24 21:00 Urine Bacteria (Auto) None Seen (None Seen) 04/14/24 21:00 Nasal Influ A H1 2008 PCR DETECTED (NotDetected) A 04/14/24 18:45 Adenovirus (PCR) Not Detected (NotDetected) 04/14/24 18:45 B. pertussis DNA (PCR) Not Detected (NotDetected) 04/14/24 18:45 B.parapertussis DNA PCR Not Detected (NotDetected) 04/14/24 18:45 C. pneumoniae DNA (PCR) Not Detected (NotDetected) 04/14/24 18:45 Coronavirus OC43 (PCR) Not Detected (NotDetected) 04/14/24 18:45 Coronavirus HKU1 (PCR) Not Detected (NotDetected) 04/14/24 18:45 Coronavirus 229E (PCR) Not Detected (NotDetected) 04/14/24 18:45 SARS-CoV-2 (PCR) Not Detected (NotDetected) 04/14/24 18:45 Coronavirus NL63 (PCR) Not Detected (NotDetected) 04/14/24 18:45 Human Metapneumovir PCR Not Detected (NotDetected) 04/14/24 18:45 Influenza Type B (PCR) Not Detected (NotDetected) 04/14/24 18:45 M. pneumoniae (PCR) Not Detected (NotDetected) 04/14/24 18:45 Parainfluenza 1 (PCR) Not Detected (NotDetected) 04/14/24 18:45 Parainfluenza 2 (PCR) Not Detected (NotDetected) 04/14/24 18:45 Parainfluenza 3 (PCR) Not Detected (NotDetected) 04/14/24 18:45 Parainfluenza 4 (PCR) Not Detected (NotDetected) 04/14/24 18:45 RSV (PCR) Not Detected (NotDetected) 04/14/24 18:45 Entero/Rhino (PCR) Not Detected (NotDetected) 04/14/24 18:45 Impressions Chest X-Ray 04/14/24 18:33 Chest radiograph, one view History: Sepsis Comparison: April 07, 2024 Findings: Single AP view of the chest performed. Large area of consolidation throughout the right lung. No pneumothorax. The cardiomediastinal silhouette is within normal limits. Normal pulmonary vascularity. No visualized bony or soft tissue abnormality. Impression: Large area of consolidation throughout the right lung, most consistent with pneumonia, given the history of sepsis. Electronically signed by Shaheed Holbrook 04-14-2024 7:21 PM Code Status & VTE Plan Code Status Full code VTE Prophylaxis Plan VTE Prophylaxis will be ordered: Yes PG Care Time/CCT Total # of Minutes Spent Total Time Spent with Patient: Total time spent is greater than 50% in coordination of care (as documented) at patient's floor/unit and/or counseling patient: Coding Level of Care Code 66922 INT INP/OBS CARE 3/75MIN Diagnoses Acute respiratory failure with hypoxia J96.01 Pneumonia involving right lung J18.9 Influenza A virus subtype H1 2009 pandemic strain present J10.1 Acute exacerbation of chronic obstructive pulmonary disease (COPD) J44.1
[2024-04-14 21:13] LABS: Appearance Urine Clear (Clear); Bacteria Urine Automated None Seen (None Seen); Bilirubin Urine Negative (Negative); Blood Urine Negative (Negative); Cast Urine Automated 0-2 /lpf (0-2); Color Urine Yellow; Epithelial Cell Urine Auto 0-2 /hpf (0-2); Glucose Urine UA Negative (Negative); Ketones Urine 1+ (Negative); Leukocyte Esterase Urine Negative (Negative); Nitrite Urine Negative (Negative); Protein Urine 1+ (Negative); RBC Urine Automated 0-2 /hpf (0-2); Specific Gravity Urine 1.018 (1.000-1.030); Urobilinogen Urine Negative (Negative); WBC Urine Automated 0-5 /hpf (0-5)
[2024-04-14] MEDS: VANCOMYCIN HCL 2,750 MG in SODIUM CHLORIDE 0.9% 500 ML IV ONE (21:16)
[2024-04-14] MEDS: DOXYCYCLINE HYCLATE 100 MG in DEXTROSE 5% MINI-B 100 ML IV STA (21:16)
[2024-04-14 21:34] LABS: INR 1.2 (0.9-1.1); Prothrombin Time 12.7 Seconds (9.0-12.0)
[2024-04-14] MEDS ORDERED: DEXTROSE 50% 50 ML SYRINGE IV PRN (22:16)
[2024-04-14] MEDS ORDERED: GLUCAGON FOR INJ 1 MG VIAL SQ PRN (22:16)
[2024-04-14] MEDS ORDERED: CARBOHYDRATES FOR HYPOGLYCEMIA PO PRN (22:16)
[2024-04-14] MEDS ORDERED: NON-FORMULARY MEDICATION (Budesonide-Glycopyr-Formoterol [Breztri Aerosphere] 160-9-4.8 mc INH SCH (22:16)
[2024-04-14] MEDS ORDERED: GLUCOSE 10 TAB/TUBE PO PRN (22:16)
[2024-04-14] MEDS ORDERED: GLUCOSE 40% GEL 15 GM TUBE PO PRN (22:16)
[2024-04-14] MEDS ORDERED: ONDANSETRON INJ 2 MG/ML 2 ML VIAL IV PRN (22:16)
[2024-04-14] MEDS: guaiFENesin/CODEINE 100MG/10MG 5ML UDC PO PRN (22:40)
[2024-04-14] MEDS: INSULIN ASPART PER UNIT CHARGE SC SCH (22:40)
[2024-04-14] MEDS: HEPARIN SOD 5,000 UNIT/0.5 ML VIAL SQ SCH (22:40)
[2024-04-14] MEDS: clonazePAM 1 MG TAB PO PRN (22:40)
[2024-04-14] MEDS: FAMOTIDINE 20 MG TAB PO SCH (23:16)
[2024-04-14] MEDS: buPROPion SR 100 MG TABCR PO SCH (23:16)
[2024-04-14] MEDS: PANTOprazole 40 MG TAB PO SCH (23:16)
[2024-04-14] MEDS: MONTELUKAST SODIUM 10 MG TABLET PO SCH (23:17)
[2024-04-15] MEDS: PIPERACILLIN/TAZOBACTAM 4.5 GM/100 ML BAG IV SCH (00:18)
[2024-04-15] MEDS: VANCOMYCIN HCL 1,250 MG in SODIUM CHLORIDE 0.9% 250 ML IV SCH (05:50)
[2024-04-15] MEDS: ALBUT/IPRATROP 3MG/0.5MG NEB 3 ML VIAL NEB SCH (07:14)
[2024-04-15 07:18] LABS: Basophils # (auto) 0.01 K/uL (0.00-0.20); Basophils % (auto) 0.1 %; Hemoglobin 14.9 g/dl (14.0-18.0); Immature Granulocytes # (auto) 0.07 K/uL (0.01-0.20); Immature Granulocytes % (auto) 0.6 %; Lymphocytes # (auto) 0.74 K/uL (1.20-3.40); Lymphocytes % (auto) 6.6 %; Mean Corpuscular Hgb Conc 34.7 g/dL (32.0-36.0); Mean Corpuscular Volume 92.3 fL (80.0-100.0); Mean Platelet Volume 11.2 fL (9.4-12.4); Monocytes % (auto) 4.5 %; Neutrophils # (auto) 9.88 K/uL (1.40-6.50); Neutrophils % (auto) 88.2 %; Platelet Count 138 K/uL (130-400); RDW Coefficient of Variation 12.9 % (11.5-14.5); RDW Standard Deviation 43.9 fL (36.4-46.3); Red Blood Count 4.66 M/uL (4.70-6.10)
--- NOTE | 2024-04-15 07:26 | Electrocardiogram Report ---
Test Reason : Blood Pressure : */* mmHG Vent. Rate : 122 BPM Atrial Rate : 122 BPM P-R Int : 162 ms QRS Dur : 78 ms QT Int : 312 ms P-R-T Axes : 62 42 51 degrees QTcB Int : 444 ms Sinus tachycardia Otherwise normal ECG When compared with ECG of 07-Apr-2024 21:50, Criteria for Septal infarct are no longer Present Confirmed by Shaheed Bravo ([id number]) on 04/15/2024 7:25:53 AM Referred By: REFERRED SELF Confirmed By: Shaheed Bravo
[2024-04-15 07:40] LABS: Albumin Level 3.1 gm/dl (3.4-5.0); BUN Creatinine Ratio 17.1 (10-20); Calcium 8.5 mg/dl (8.6-10.3); Creatinine Clr Calc Pharmacy 150.2 ml/min; Magnesium 2.3 mg/dl (1.7-2.4); Phosphorus 2.6 mg/dl (2.5-4.9); Potassium 4.2 mmol/L (3.5-5.1)
[2024-04-15] MEDS ORDERED: methylPREDNISolone 10 mg/mL (For Ped Dose < 7mg) IV SCH (08:00)
[2024-04-15 08:43] LABS: Estimated Average Glucose 111 mg/dl; Hemoglobin A1C 5.5 % (4.5-5.6)
[2024-04-15] MEDS: methylPREDNISolone 40 MG in SYRINGE 0 ML IV SCH (08:57)
[2024-04-15] MEDS: CYANOCOBALAMIN (B-12) 2,500 MCG TABLET PO SCH (08:57)
[2024-04-15] MEDS: CHOLECALCIFEROL 25 MCG (1000 UNITS) TAB PO SCH (08:57)
[2024-04-15] MEDS: UMECLIDINIUM/VILANTEROL 62.5/25MCG 7 PUFFS/INHALER INH SCH (08:58)
[2024-04-15] MEDS: FLUTICASONE FUROATE 200MCG 14 PUFFS/INHALER INH SCH (08:58)
[2024-04-15] MEDS: MAGNESIUM OXIDE 400 MG TAB PO SCH (08:59)
[2024-04-15] MEDS: ROSUVASTATIN CALCIUM 10 MG TAB PO SCH (08:59)
[2024-04-15] MEDS: ASCORBIC ACID 500 MG TAB PO SCH (08:59)
[2024-04-15] MEDS: ZINC SULFATE 220 MG CAPSULE PO SCH (08:59)
[2024-04-15] MEDS: DOXYCYCLINE HYCLATE 100 MG in DEXTROSE 5% MINI-B 100 ML IV SCH (09:01)
[2024-04-15] MEDS: COUGH DROP (SUGAR FREE) LOZ 24 LOZ/1 BOX BUCCAL ONE (09:19)
[2024-04-15] MEDS: LANTUS PER UNIT CHARGE SQ SCH (09:19)
--- NOTE | 2024-04-15 12:33 | Hospitalist Progress Note ---
Date of Service April 15, 2024 Assessment & Plan (1) Acute respiratory failure with hypoxia: Plan: -2nd to multilobar PNA -recent Influenza A H1 infection -COPD exacerbation (2) Pneumonia involving right lung: Plan: -Zosyn/doxycycline -supplemental 02 as needed -hycodan prn (3) Influenza A virus subtype H1 2009 pandemic strain present: Plan: -Tamiflu course completed (4) Acute exacerbation of chronic obstructive pulmonary disease (COPD): Plan: -Solumedrol 40mg IV Q8hrs -duonebs prn (5) Type 2 diabetes mellitus: Plan: -lantus -Novolog SSI (6) Anxiety: Plan: -bupropion, trintellix, and clonazepam Plan The patient is a 53-year-old male with a past medical history including COPD, diabetes mellitus type 2, DANIELITO, dyslipidemia, chronic bronchitis, hypersomnia, history of tobacco use, history of lung granuloma, insulin requiring diabetes mellitus type 2, hypertension, GERD and morbid obesity. He was most recently mated to [facility] from 04/08-04/12/2023 for influenza A subtype H1 2009 pandemic strain and COPD exacerbation. He had had some improvement in symptoms, however, since discharge had gradually More short of breath, producing green- yellow mucus, and having worsening right sided chest discomfort. He presented to the emergency department, was found to have a new right lower lobe and right middle lobe infiltrate, was found to have pulse ox 83% on room air, and was referred for evaluation for admission. Con't abx for RLL and RML PNA day #2 COPD exacerbation requiring steroids and nebs recent influenza A H1 infection Admission and Anticipated Discharge Date Admission Date: April 14, 2024 Subjective Pt still coughing up green mucus. Review of Systems Review of Systems: CONST: Negative for fever, body aches and chills. HENT: Negative for neck pain/stiffness, headache, congestion, sore throat, swelling. EYES: Negative for discharge/pain or vision changes. RESP: +cough, SOB CV: Negative chest pain, difficulty breathing, palpitations. ABD: Negative pain, nausea, vomiting. : Negative increase frequency, dysuria, blood in urine or stool. MUSC: Negative for muscle aches, edema. SKIN: Negative rash, lesions/sores. NEURO: Negative headache, dizziness, weakness. Physical Exam Physical Exam: GENERAL APPEARANCE NAD, activity normal for age, well developed/ well nourished, no cyanosis, pallor, or diaphoresis. EYES lids/conjunctiva normal. EARS/NOSE/THROAT Mucous membranes moist, nares normal, lips/teeth normal uvula midline without oral pharyngeal erythema, exudate or swelling TMs normal bilaterally. No lymphangitis/lymphedema. HEAD/NECK normocephalic atraumatic, no facial trauma, neck is supple. RESPIRATORY respiratory effort normal, speaks in full sentences, no tripod position, no accessory muscle use. Lungs clear to auscultation without rhonchi, wheezes, rales CARDIAC Regular rate and rhythm, no edema. ABDOMINAL Soft, ND/NT. No evidence of fluid wave. No pulsatile masses on exam, rebound tenderness, Scott sign or pain over Mcburney's point. MUSCLES/EXTREMITIES No abnormal range of motion, no swelling. SKIN Warm, pink and dry. No rashes, dermatoses, petechiae or lesions. NEUROLOGICAL Speech is clear and appropriate. Normal level of consciousness. Gait and coordination are normal. 5/5 strength in all extremities. PSYCH Normal mood and affect. Judgement/competence is appropriate Results & Data Results & Data Vital Signs (Past 12 Hours) Vital Signs Temp Pulse Pulse Pulse Resp BP Pulse Ox 04/15/24 12:15 36.8 C 87 22 129/74 93 04/15/24 11:16 18 98 04/15/24 08:30 63 04/15/24 08:30 04/15/24 08:13 36.4 C L 65 22 155/82 H 96 04/15/24 07:14 58 L 19 98 04/15/24 03:51 36.4 C L 64 24 116/82 94 04/15/24 03:01 105 H O2 Del Method O2 Flow Rate 04/15/24 12:15 Nasal Cannula 2 04/15/24 11:16 Nasal Cannula 2 04/15/24 08:30 04/15/24 08:30 Nasal Cannula 4 04/15/24 08:13 Nasal Cannula 4 04/15/24 07:14 Nasal Cannula 6 04/15/24 03:51 Nasal Cannula 6 04/15/24 03:01 PG Care Time/CCT Total # of Minutes Spent Total Time Spent with Patient: Total time spent is greater than 50% in coordination of care (as documented) at patient's floor/unit and/or counseling patient: Coding Level of Care Code 84615 SUB INP/OBS CARE 235MIN Diagnoses Acute respiratory failure with hypoxia J96.01 Pneumonia involving right lung J18.9 Influenza A virus subtype H1 2009 pandemic strain present J10.1 Acute exacerbation of chronic obstructive pulmonary disease (COPD) J44.1 Type 2 diabetes mellitus E11.9 Anxiety F41.9
--- NOTE | 2024-04-15 13:06 | Pharmacy Report ---
Pharmacy PK ABX Note - Date of Service April 15, 2024 - Assessment and Plan Assessment 53 year old M receiving vancomycin/zosyn for treatment of pneumonia with recent flu A infection. Pertinent microbiologic data includes: blood cultures pending Leukocytosis downtrending. Initial procal 1.64. Plan Vancomycin * Loading dose: 2750 mg IV x 1 * Maintenance dose: 1250 mg IV every 8 hours * Regimen is predicted to achieve target AUC/YANDEL of 400-600 mg/L.hr * Random level ordered for 04/16 with AM labs Pharmacy will continue to follow and will adjust dose/frequency as necessary. Thank you. Pharmacy has transitioned to AUC monitoring for vancomycin. AUC/YANDEL is the preferred PK/PD target and is associated with decreased risk of nephrotoxicity compared to traditional trough targets.
[2024-04-15] MEDS: ACETAMINOPHEN 325 MG TAB PO PRN (17:37)
[2024-04-15] MEDS: ALBUT/IPRATROP 3MG/0.5MG NEB 3 ML VIAL NEB PRN (20:03)
[2024-04-15] MEDS: COUGH DROP (SUGAR FREE) LOZ 24 LOZ/1 BOX BUCCAL PRN (20:38)
[2024-04-15] MEDS: guaiFENesin 600 MG TABCR PO SCH (22:09)
[2024-04-15] MEDS: FLUTICASONE PROPIONATE NA SPR 16 GM BTL SCH (22:17)
[2024-04-16] MEDS: VANCOMYCIN LEVEL ONE (06:00)
[2024-04-16 06:25] LABS: Basophils # (auto) 0.02 K/uL (0.00-0.20); Basophils % (auto) 0.1 %; Hematocrit (blood only) 39.6 % (42.0-52.0); Hemoglobin 13.6 g/dl (14.0-18.0); Immature Granulocytes # (auto) 0.16 K/uL (0.01-0.20); Immature Granulocytes % (auto) 1.1 %; Lymphocytes # (auto) 0.88 K/uL (1.20-3.40); Lymphocytes % (auto) 6.2 %; Mean Corpuscular Hemoglobin 31.7 pg (25.0-34.0); Mean Corpuscular Hgb Conc 34.3 g/dL (32.0-36.0); Mean Corpuscular Volume 92.3 fL (80.0-100.0); Monocytes # (auto) 0.71 K/uL (0.11-0.59); Neutrophils # (auto) 12.48 K/uL (1.40-6.50); Neutrophils % (auto) 87.6 %; Platelet Count 162 K/uL (130-400); RDW Coefficient of Variation 12.7 % (11.5-14.5); RDW Standard Deviation 43.2 fL (36.4-46.3); Red Blood Count 4.29 M/uL (4.70-6.10); White Blood Count 14.25 K/ul (4.8-10.8)
[2024-04-16 06:33] LABS: BUN Creatinine Ratio 18.4 (10-20); Calcium 8.6 mg/dl (8.6-10.3); Creatinine Clr Calc Pharmacy 116.5 ml/min; Magnesium 2.2 mg/dl (1.7-2.4); Phosphorus 3.2 mg/dl (2.5-4.9); Potassium 3.8 mmol/L (3.5-5.1)
--- NOTE | 2024-04-16 09:14 | Pharmacy Report ---
Pharmacy PK ABX Note - Date of Service April 16, 2024 - Assessment and Plan Assessment 53 year old M receiving vancomycin/zosyn for treatment of pneumonia with recent flu A infection. Pertinent microbiologic data includes: blood cultures pending Leukocytosis downtrending. Initial procal 1.64. Plan 04/16/24 vancomycin random level 11.5 continue Vancomycin 1250 mg q8h Vancomycin * Loading dose: 2750 mg IV x 1 * Maintenance dose: 1250 mg IV every 8 hours * Regimen is predicted to achieve target AUC/YANDEL of 400-600 mg/L.hr * Random level ordered for 04/16 with AM labs Pharmacy will continue to follow and will adjust dose/frequency as necessary. Thank you. Pharmacy has transitioned to AUC monitoring for vancomycin. AUC/YANDEL is the preferred PK/PD target and is associated with decreased risk of nephrotoxicity compared to traditional trough targets.
[2024-04-16 10:15] LABS: C Reactive Protein 14.98 mg/dl (0-0.5)
[2024-04-16] MEDS: SODIUM CHLOR 7% 4 ML NEB NEB SCH (11:25)
[2024-04-16] MEDS: VORTIOXETINE HYDROBROMIDE PO SCH (15:30)
--- NOTE | 2024-04-16 20:36 | Hospitalist Progress Note ---
Date of Service April 16, 2024 Assessment & Plan (1) Acute respiratory failure with hypoxia: Plan: -2nd to multilobar PNA -recent Influenza A H1 infection -COPD exacerbation added hypertonic saline nebs procal and crp remain elevated, (2) Pneumonia involving right lung: Plan: -Zosyn/doxycycline -supplemental 02 as needed -hycodan prn (3) Influenza A virus subtype H1 2009 pandemic strain present: Plan: -Tamiflu course completed (4) Acute exacerbation of chronic obstructive pulmonary disease (COPD): Plan: -Solumedrol 40mg IV cut to daily -duonebs prn (5) Type 2 diabetes mellitus: Plan: -lantus -Novolog SSI (6) Anxiety: Plan: -bupropion, trintellix, and clonazepam Plan The patient is a 53-year-old male with a past medical history including COPD, diabetes mellitus type 2, DANIELITO, dyslipidemia, chronic bronchitis, hypersomnia, history of tobacco use, history of lung granuloma, insulin requiring diabetes mellitus type 2, hypertension, GERD and morbid obesity. He was most recently mated to [facility] from 04/08-04/12/2023 for influenza A subtype H1 2009 pandemic strain and COPD exacerbation. He had had some improvement in symptoms, however, since discharge had gradually More short of breath, producing green- yellow mucus, and having worsening right sided chest discomfort. He presented to the emergency department, was found to have a new right lower lobe and right middle lobe infiltrate, was found to have pulse ox 83% on room air, and was referred for evaluation for admission. Con't abx for RLL and RML PNA day #3 COPD exacerbation requiring steroids and nebs recent influenza A H1 infection Admission and Anticipated Discharge Date Admission Date: April 14, 2024 Subjective Patiwnt reports having burning eyes when he coughs. He also complains of numbness in 4th and 5th digit of his left hand. Review of Systems Review of Systems: All systems reviewed & are unremarkable except as noted in HPI & below Physical Exam Physical Exam: GENERAL APPEARANCE NAD, activity normal for age, well developed/ well nourished, no cyanosis, pallor, or diaphoresis. EYES lids/conjunctiva normal. HEAD/NECK normocephalic atraumatic RESPIRATORY respiratory effort normal, tight airways, no wheezing CARDIAC Regular rate and rhythm, no edema. ABDOMINAL Soft, ND/NT. No evidence of fluid wave. No pulsatile masses on exam, rebound tenderness, Scott sign or pain over Mcburney's point. MUSCLES/EXTREMITIES No abnormal range of motion, no swelling. Results & Data Results & Data Vital Signs (Past 12 Hours) Vital Signs Temp Pulse Pulse Resp BP Pulse Ox O2 Del Method 04/16/24 20:17 90 22 97 Nasal Cannula 04/16/24 16:50 37.1 C 86 19 121/74 94 Nasal Cannula 04/16/24 14:46 93 H 04/16/24 12:24 36.7 C 84 20 134/80 96 Nasal Cannula 04/16/24 11:29 92 H 22 93 Nasal Cannula O2 Flow Rate 04/16/24 20:17 2 04/16/24 16:50 2 04/16/24 14:46 04/16/24 12:24 2 04/16/24 11:29 2 PG Care Time/CCT Total # of Minutes Spent Total Time Spent with Patient: Total time spent is greater than 50% in coordination of care (as documented) at patient's floor/unit and/or counseling patient: Coding Level of Care Code 90338 SUB INP/OBS CARE 3/50MIN Diagnoses Acute respiratory failure with hypoxia J96.01 Pneumonia involving right lung J18.9 Influenza A virus subtype H1 2009 pandemic strain present J10.1 Acute exacerbation of chronic obstructive pulmonary disease (COPD) J44.1 Type 2 diabetes mellitus E11.9 Anxiety F41.9
[2024-04-16] MEDS: DOXYCYCLINE HYCLATE 100 MG CAP PO SCH (21:54)
[2024-04-17 06:20] LABS: Basophils # (auto) 0.03 K/uL (0.00-0.20); Basophils % (auto) 0.2 %; Hematocrit (blood only) 39.4 % (42.0-52.0); Hemoglobin 13.4 g/dl (14.0-18.0); Immature Granulocytes # (auto) 0.17 K/uL (0.01-0.20); Immature Granulocytes % (auto) 1.1 %; Lymphocytes # (auto) 1.76 K/uL (1.20-3.40); Lymphocytes % (auto) 11.5 %; Mean Corpuscular Hemoglobin 31.1 pg (25.0-34.0); Mean Corpuscular Volume 91.4 fL (80.0-100.0); Mean Platelet Volume 10.7 fL (9.4-12.4); Monocytes # (auto) 1.17 K/uL (0.11-0.59); Monocytes % (auto) 7.7 %; Neutrophils # (auto) 12.13 K/uL (1.40-6.50); Neutrophils % (auto) 79.5 %; Platelet Count 171 K/uL (130-400); RDW Coefficient of Variation 13.2 % (11.5-14.5); RDW Standard Deviation 44.3 fL (36.4-46.3); Red Blood Count 4.31 M/uL (4.70-6.10); White Blood Count 15.26 K/ul (4.8-10.8)
[2024-04-17 06:22] LABS: Albumin Level 2.9 gm/dl (3.4-5.0); C Reactive Protein 5.65 mg/dl (0-0.5); Calcium 8.4 mg/dl (8.6-10.3); Creatinine Clr Calc Pharmacy 131.2 ml/min; Magnesium 2.1 mg/dl (1.7-2.4); Phosphorus 3.2 mg/dl (2.5-4.9); Potassium 4.1 mmol/L (3.5-5.1)
[2024-04-17] MEDS: methylPREDNISolone 40 MG in SYRINGE 0 ML IV SCH (07:26)
--- NOTE | 2024-04-17 22:13 | Hospitalist Progress Note ---
Date of Service April 17, 2024 Assessment & Plan (1) Acute respiratory failure with hypoxia: Plan: -2nd to multilobar PNA -recent Influenza A H1 infection -COPD exacerbation -sepsis POA continue antibiotics: doxycycline, zosyn on corticosteroids continue hypertonic saline nebs procal and crp remain elevated, (2) Pneumonia involving right lung: Plan: -Zosyn/doxycycline -supplemental 02 as needed -hycodan prn (3) Influenza A virus subtype H1 2009 pandemic strain present: Plan: -Tamiflu course completed (4) Acute exacerbation of chronic obstructive pulmonary disease (COPD): Plan: -Solumedrol 40mg IV cut to daily -duonebs prn (5) Type 2 diabetes mellitus: Plan: -lantus -Novolog SSI (6) Anxiety: Plan: -bupropion, trintellix, and clonazepam Plan The patient is a 53-year-old male with a past medical history including COPD, diabetes mellitus type 2, DANIELITO, dyslipidemia, chronic bronchitis, hypersomnia, history of tobacco use, history of lung granuloma, insulin requiring diabetes mellitus type 2, hypertension, GERD and morbid obesity. He was most recently mated to [facility] from 04/08-04/12/2023 for influenza A subtype H1 2009 pandemic strain and COPD exacerbation. He had had some improvement in symptoms, however, since discharge had gradually More short of breath, producing green- yellow mucus, and having worsening right sided chest discomfort. He presented to the emergency department, was found to have a new right lower lobe and right middle lobe infiltrate, was found to have pulse ox 83% on room air, and was referred for evaluation for admission. Con't abx for RLL and RML PNA day #4 COPD exacerbation requiring steroids and nebs recent influenza A H1 infection Admission and Anticipated Discharge Date Admission Date: April 14, 2024 Subjective Patient reports he continues to have cough, without much production Review of Systems Review of Systems: All systems reviewed & are unremarkable except as noted in HPI & below Physical Exam Physical Exam: GENERAL APPEARANCE NAD, activity normal for age, well developed/ well nourished, no cyanosis, pallor, or diaphoresis. EYES lids/conjunctiva normal. HEAD/NECK normocephalic atraumatic RESPIRATORY respiratory effort normal, tight airways, no wheezing CARDIAC Regular rate and rhythm, no edema. ABDOMINAL Soft, ND/NT. MUSCLES/EXTREMITIES No abnormal range of motion, no swelling. Results & Data Results & Data Vital Signs (Past 12 Hours) Vital Signs Temp Pulse Resp BP Pulse Ox O2 Del Method O2 Flow Rate 04/17/24 20:10 Nasal Cannula 2 04/17/24 19:57 79 18 97 Nasal Cannula 2 04/17/24 16:05 36.6 C 84 18 119/75 96 Nasal Cannula 2 04/17/24 14:53 80 16 95 Nasal Cannula 2 04/17/24 12:18 36.7 C 83 20 122/76 94 Nasal Cannula 2 PG Care Time/CCT Total # of Minutes Spent Total Time Spent with Patient: Total time spent is greater than 50% in coordination of care (as documented) at patient's floor/unit and/or counseling patient: Coding Level of Care Code 49319 SUB INP/OBS CARE 2/35MIN Diagnoses Acute respiratory failure with hypoxia J96.01 Pneumonia involving right lung J18.9 Influenza A virus subtype H1 2009 pandemic strain present J10.1 Acute exacerbation of chronic obstructive pulmonary disease (COPD) J44.1 Type 2 diabetes mellitus E11.9 Anxiety F41.9
[2024-04-18 08:12] LABS: Basophils # (auto) 0.06 K/uL (0.00-0.20); Basophils % (auto) 0.4 %; Eosinophils # (auto) 0.02 K/uL (0.00-0.50); Eosinophils % (auto) 0.1 %; Hematocrit (blood only) 42.3 % (42.0-52.0); Hemoglobin 14.5 g/dl (14.0-18.0); Immature Granulocytes # (auto) 0.48 K/uL (0.01-0.20); Immature Granulocytes % (auto) 2.8 %; Lymphocytes # (auto) 3.69 K/uL (1.20-3.40); Lymphocytes % (auto) 21.6 %; Mean Corpuscular Hemoglobin 31.5 pg (25.0-34.0); Mean Corpuscular Hgb Conc 34.3 g/dL (32.0-36.0); Mean Platelet Volume 10.6 fL (9.4-12.4); Monocytes # (auto) 1.34 K/uL (0.11-0.59); Monocytes % (auto) 7.8 %; Neutrophils # (auto) 11.52 K/uL (1.40-6.50); Neutrophils % (auto) 67.3 %; Platelet Count 167 K/uL (130-400); RDW Coefficient of Variation 13.2 % (11.5-14.5); RDW Standard Deviation 44.8 fL (36.4-46.3); White Blood Count 17.11 K/ul (4.8-10.8)
[2024-04-18 08:30] LABS: BUN Creatinine Ratio 23.2 (10-20); C Reactive Protein 4.89 mg/dl (0-0.5); Calcium 8.5 mg/dl (8.6-10.3); Creatinine Clr Calc Pharmacy 139.2 ml/min; Potassium 4.1 mmol/L (3.5-5.1)
--- NOTE | 2024-04-18 09:58 | XRay Report ---
XR chest 2V PA/lateral CLINICAL HISTORY: right pneumonia TECHNIQUE: 2 views of the chest were obtained. Comparison: Comparison is made to chest radiograph 04/14/2024 FINDINGS: No lines and tubes are seen. The cardiomediastinal silhouette is normal. Interval improvement in righ t airspace opacity. No evidence of pleural effusion or pneumothorax. IMPRESSION: Interval improvement in right airspace opacities. ACT 112: Negative or not required by law. Electronically signed by: Brayan Lou M.D. 04/18/2024 9:56 AM
--- NOTE | 2024-04-18 11:24 | Hospitalist Progress Note ---
Date of Service April 18, 2024 Assessment & Plan (1) Acute respiratory failure with hypoxia: Plan: Treat underlying pneumonia. Supplemental oxygen by nasal cannula to maintain saturation greater than 90%. Two-step evaluation prior to discharge to determine if he will need home oxygen for a while. (2) Pneumonia involving right lung: Plan: Sputum culture is nondiagnostic. He is currently on intravenous Zosyn and vancomycin. Chest x-ray done today, April 18, looks much better (3) Influenza A virus subtype H1 2009 pandemic strain present: Plan: . Supportive care Tamiflu course completed (4) Acute exacerbation of chronic obstructive pulmonary disease (COPD): Plan: Continue intravenous Solu-Medrol while hospitalized. DuoNebs as needed. (5) Type 2 diabetes mellitus: Plan: ADA diet. Basal insulin therapy. Sliding scale coverage. (6) Anxiety: Plan: Stable. Continue bupropion, trintellix, and clonazepam Plan Hopeful discharge to home tomorrow, April 19. Two-step evaluation will determine if he will need home oxygen for a while. Admission and Anticipated Discharge Date Admission Date: April 14, 2024 Subjective Alert and oriented. Nonproductive cough. Vitals are stable. He remains on oxygen at 2 L/min. Chest x-ray done today, April 18, looks much better. Hopefully he can go home tomorrow, April 19. Will obtain two-step oxygen evaluation prior to discharge to determine if he needs home oxygen for a while. Sputum is growing Renea which is not surprising since he is on IV antibiotics and Solu-Medrol. Oral Diflucan has been started. Sputum culture is nondiagnostic Review of Systems 2 Review of Systems: Constitutionalno fever or chills ENTno blurred vision, no double vision, no epistaxis, no sore throat Respiratorynonproductive cough. No hemoptysis. No pleuritic pain Cardiacno palpitations, no chest pain, no syncope Zaheer nausea, vomiting, diarrhea, melena, hematochezia GUno urinary retention, no urinary incontinence, no dysuria, no hematuria Musculoskeletalno joint pain, no muscle tenderness Skinno bruising, no rashes, no pruritus Neurono isolated weakness, no paresthesia, no weakness Psychno depression, no anxiety Physical Exam 2 Physical Exam: General-alert and oriented x3, no fever, no chills HEENT-head atraumatic and normocephalic, pupils equal and reactive to light, extraocular muscles intact Neck-no lymphadenopathy or thyromegaly, trachea midline Chest-scattered bilateral rhonchi. No wheezing. No inspiratory rales. Cardiac-regular rate and rhythm, normal S1 and S2 Abdomen-normal bowel sounds, no hepatosplenomegaly Extremities-no cyanosis, clubbing, or edema Neuro-cranial nerves II through XII intact, motor and sensory function within normal limits, strength symmetrical, no focal deficits Psych-normal affect, normal mood Results & Data Results & Data Vital Signs (Past 12 Hours) Vital Signs Temp Pulse Resp BP Pulse Ox O2 Del Method O2 Flow Rate 04/18/24 07:54 Nasal Cannula 2 04/18/24 07:37 36.8 C 93 H 16 103/65 92 Room Air 04/18/24 07:10 83 18 95 Nasal Cannula 2 04/18/24 00:16 36.9 C 85 21 134/82 96 Nasal Cannula 2 Laboratory Results 04/18/24 07:45 04/18/24 07:45 PG Care Time/CCT Total # of Minutes Spent Total Time Spent with Patient: Total time spent is greater than 50% in coordination of care (as documented) at patient's floor/unit and/or counseling patient: Coding Level of Care Code 00472 SUB INP/OBS CARE 3/50MIN Diagnoses Acute respiratory failure with hypoxia J96.01 Pneumonia involving right lung J18.9 Influenza A virus subtype H1 2009 pandemic strain present J10.1 Acute exacerbation of chronic obstructive pulmonary disease (COPD) J44.1 Type 2 diabetes mellitus E11.9 Anxiety F41.9
[2024-04-18] MEDS: FLUCONAZOLE 50 MG TAB PO SCH (12:16)
[2024-04-19 08:08] LABS: Hematocrit (blood only) 40.4 % (42.0-52.0); Hemoglobin 13.7 g/dl (14.0-18.0); Mean Corpuscular Hemoglobin 31.5 pg (25.0-34.0); Mean Corpuscular Hgb Conc 33.9 g/dL (32.0-36.0); Mean Corpuscular Volume 92.9 fL (80.0-100.0); Mean Platelet Volume 10.5 fL (9.4-12.4); Platelet Count 162 K/uL (130-400); RDW Coefficient of Variation 13.2 % (11.5-14.5); Red Blood Count 4.35 M/uL (4.70-6.10); White Blood Count 15.79 K/ul (4.8-10.8)
[2024-04-19 08:10] LABS: Calcium 8.7 mg/dl (8.6-10.3); Creatinine Clr Calc Pharmacy 129.7 ml/min; Potassium 4.1 mmol/L (3.5-5.1)
--- NOTE | 2024-04-19 11:47 | Hospitalist Progress Note ---
Date of Service April 19, 2024 Assessment & Plan (1) Acute respiratory failure with hypoxia: Plan: Oxygen has now been weaned off. Resolved. Treat underlying pneumonia. (2) Pneumonia involving right lung: Plan: Sputum culture is nondiagnostic. He does have some Renea. He is now on oral Diflucan. Continue Zosyn for now. Will repeat chest x-ray again tomorrow, April 20 (3) Influenza A virus subtype H1 2009 pandemic strain present: Plan: .Supportive care. Tamiflu course completed (4) Acute exacerbation of chronic obstructive pulmonary disease (COPD): Plan: Much improved with intravenous Solu-Medrol and nebulizer treatments. (5) Type 2 diabetes mellitus: Plan: Stable. ADA diet. Basal insulin therapy. Sliding scale coverage. (6) Anxiety: Plan: Stable. Continue bupropion, trintellix, and clonazepam Plan Hopeful discharge to home tomorrow, April 20. It does not appear that he will need home oxygen therapy Admission and Anticipated Discharge Date Admission Date: April 14, 2024 Subjective Alert and oriented. No acute distress. Two-step oxygen evaluation completed this morning, April 19. No indication for home oxygen at this time. He remains on intravenous Zosyn and Solu-Medrol along with oral Diflucan. Will repeat chest x-ray again tomorrow, April 20. White blood cell count is mildly elevated due to steroid therapy. Hopefully he can go home tomorrow, April 20 Review of Systems 2 Review of Systems: Constitutionalno fever or chills ENTno blurred vision, no double vision, no epistaxis, no sore throat Respiratorynonproductive cough. No hemoptysis. No pleuritic pain Cardiacno palpitations, no chest pain, no syncope Zaheer nausea, vomiting, diarrhea, melena, hematochezia GUno urinary retention, no urinary incontinence, no dysuria, no hematuria Musculoskeletalno joint pain, no muscle tenderness Skinno bruising, no rashes, no pruritus Neurono isolated weakness, no paresthesia, no weakness Psychno depression, no anxiety Physical Exam 2 Physical Exam: General-alert and oriented x3, no fever, no chills HEENT-head atraumatic and normocephalic, pupils equal and reactive to light, extraocular muscles intact Neck-no lymphadenopathy or thyromegaly, trachea midline Chest-scattered bilateral rhonchi. No wheezing. No inspiratory rales. Cardiac-regular rate and rhythm, normal S1 and S2 Abdomen-normal bowel sounds, no hepatosplenomegaly Extremities-no cyanosis, clubbing, or edema Neuro-cranial nerves II through XII intact, motor and sensory function within normal limits, strength symmetrical, no focal deficits Psych-normal affect, normal mood Results & Data Results & Data Vital Signs (Past 12 Hours) Vital Signs Temp Pulse Pulse Pulse Pulse Resp Resp 04/19/24 09:23 04/19/24 08:50 95 H 110 H 91 H 18 04/19/24 07:30 79 20 04/19/24 07:05 36.7 C 74 16 Resp Resp BP Pulse Ox Pulse Ox Pulse Ox Pulse Ox 04/19/24 09:23 04/19/24 08:50 22 16 94 93 92 04/19/24 07:30 94 04/19/24 07:05 128/73 94 O2 Del Method O2 Flow Rate O2 Flow Rate 04/19/24 09:23 Nasal Cannula 2 04/19/24 08:50 92 04/19/24 07:30 Nasal Cannula 1.5 04/19/24 07:05 Nasal Cannula 1.0 Laboratory Results 04/19/24 07:33 04/19/24 07:33 PG Care Time/CCT Total # of Minutes Spent Total Time Spent with Patient: Total time spent is greater than 50% in coordination of care (as documented) at patient's floor/unit and/or counseling patient: Coding Level of Care Code 96973 SUB INP/OBS CARE 2/35MIN Diagnoses Acute respiratory failure with hypoxia J96.01 Pneumonia involving right lung J18.9 Influenza A virus subtype H1 2009 pandemic strain present J10.1 Acute exacerbation of chronic obstructive pulmonary disease (COPD) J44.1 Type 2 diabetes mellitus E11.9 Anxiety F41.9
[2024-04-19] MEDS: methylPREDNISolone 40 MG in SYRINGE 0 ML IV SCH (14:10)
[2024-04-19 21:41] VITALS: TEMP 98.2
--- NOTE | 2024-04-20 07:31 | XRay Report ---
EXAM: XR chest 1V portable CLINICAL HISTORY: RIGHT PNEUMONIA. TECHNIQUE: An X-ray image of the chest was obtained in AP projection. COMPARISON: X-ray dated 04/18/2024. FINDINGS: Pulmonary Parenchyma: Small multifocal ill-defined opacities are seen mainly in the upper and mid zones of the right lung. No evidence of pleural effusion or pleural thickening. Heart and Mediastinum: Heart size and shape are normal. No mediastinal widening or masses. No hilar or mediastinal lymphadenopathy. Bony Thorax: Bony thorax appears intact without fractures or deformities. Soft Tissues: Soft tissues overlying the chest wall are unremarkable. IMPRESSION: 1. Small multifocal ill-defined opacities, mainly in the right upper and mid zones, post inflammatory. Suggest clinical and lab correlation. 2. When compared with the previous X-ray dated 04/18/2024, there is marginal interval regression. Electronically signed by Jerald Carrasco 04-20-2024 07:31 AM
[2024-04-20 07:44] VITALS: BP 153/87
--- NOTE | 2024-04-20 11:47 | Discharge Summary ---
Discharge Summary Date of Service April 20, 2024 Principal Dx & Hospital Course #1 = Principal Diagnosis (1) Acute respiratory failure with hypoxia: Oxygen has now been weaned off. Resolved. Treat underlying pneumonia. (2) Pneumonia involving right lung: Sputum culture is nondiagnostic. He does have some Renea. This was treated with Diflucan while hospitalized. He was also treated with doxycycline. Chest x-ray done today, April 20, shows continued improvement to me. He is medically stable for discharge to home (3) Influenza A virus subtype H1 2009 pandemic strain present: Supportive care. Tamiflu course completed (4) Acute exacerbation of chronic obstructive pulmonary disease (COPD): Much improved with intravenous Solu-Medrol and nebulizer treatments. Home on a tapering dose of oral prednisone (5) Type 2 diabetes mellitus: Stable. ADA diet. Basal insulin therapy. Sliding scale coverage. (6) Anxiety: Stable. Continue bupropion, trintellix, and clonazepam Plan Home today, April 20. Continue doxycycline for 1 more week along with a tapering dose of prednisone. Follow-up with PCP as soon as possible for further management of chronic problems Admission HPI Per Admitting Provider The patient is a 53-year-old male with a past medical history including COPD, diabetes mellitus type 2, DANIELITO, dyslipidemia, chronic bronchitis, hypersomnia, history of tobacco use, history of lung granuloma, insulin requiring diabetes mellitus type 2, hypertension, GERD and morbid obesity. He was most recently mated to [facility] from 04/08-04/12/2023 for influenza A subtype H1 2009 pandemic strain and COPD exacerbation. He had had some improvement in symptoms, however, since discharge had gradually More short of breath, producing green- yellow mucus, and having worsening right sided chest discomfort. He presented to the emergency department, was found to have a new right lower lobe and right middle lobe infiltrate, was found to have pulse ox 83% on room air, and was refe rred for evaluation for admission. Discharge Exam General-alert and oriented x3, no fever, no chills HEENT-head atraumatic and normocephalic, pupils equal and reactive to light, extraocular muscles intact Neck-no lymphadenopathy or thyromegaly, trachea midline Chest-scattered bilateral rhonchi. No wheezing. No inspiratory rales. Cardiac-regular rate and rhythm, normal S1 and S2 Abdomen-normal bowel sounds, no hepatosplenomegaly Extremities-no cyanosis, clubbing, or edema Neuro-cranial nerves II through XII intact, motor and sensory function within normal limits, strength symmetrical, no focal deficits Psych-normal affect, normal mood Discharge Plan Discharge Items Patient Disposition: Home - Self-Care Reason For Visit: PNEUMONIA INVOLVING RIGHT LUNG, ACUTE RESP FAILURE Discharge Diagnosis: Right sided pneumonia, sepsis, acute hypoxic respiratory failure Activity: Resume your previous activity Non-emergency contact: Primary Care Provider Call non-emergency contact if: your symptoms worsen Follow-up/Referrals: Reji Ga DO [Primary Care Provider] - Diet: Carb Consistent or DM2 Addtl Attending Provider Instructions: Take doxycycline 100 mg twice a day for 1 more week. Take prednisone in a tapering dose fashion as directed. Follow-up with soon as possible with your primary care provider Pending Studies at Discharge: No Stand-Alone Forms: [employer], Smoking Cessation Medications and DC Order Prescriptions: New prednisone 10 mg Tablet See Rx Instructions .ROUTE .COMPLEX Qty: 12 0RF Rx Instructions: 10 mg orally 3 times a day for 2 days, then 10 mg twice a day for 2 days, then 10 mg once a day for 2 days, then stop doxycycline hyclate 100 mg Capsule 100 mg PO BID Qty: 10 0RF Continued (DME) nebulizers Mis See Rx Instructions miscellaneous .MEDSUPPLY Qty: 1 0RF Rx Instructions: Use 4 times daily or as directed with nebulizer solution. Lifetime need. (DME) nebulizers [Aeroneb Go Nebulizer] Mis See Rx Instructions .MEDSUPPLY Qty: 1 0RF Rx Instructions: With tubing and supplies. J44.9. J45.9. (DME) FreeStyle Mehul 2 Sensor Kit See Rx Instructions .ROUTE .MEDSUPPLY Qty: 2 11RF Rx Instructions: Change every 14 days with a new sensor benzonatate 100 mg capsule 100 mg PO BID Qty: 90 1RF furosemide [Lasix] 20 mg tablet 20 mg PO BID Qty: 180 3RF Rx Instructions: Take one tablet in the morning, take one tablet in the evening. insulin aspart U-100 [Novolog FlexPen U-100 Insulin] 100 unit/mL (3 mL) insulin pen 6 unit subcut TID MDD 18 units Qty: 30 3RF Hold Instructions: Home Medication placed on hold at Doctor's office insulin glargine [Lantus Solostar U-100 Insulin] 100 unit/mL (3 mL) insulin pen 6 unit subcut DAILY Qty: 15 3RF Hold Instructions: Home Medication placed on hold at Doctor's office ([facility] [place]) blood sugar diagnostic Strip See Rx Instructions .ROUTE .MEDSUPPLY Qty: 200 3RF Rx Instructions: testing two times a day. One Touch Ultra Blue ([facility]) lancets Misc See Rx Instructions .ROUTE .MEDSUPPLY Qty: 200 3RF Rx Instructions: Test blood sugar twice a day ([facility]) pen needle, diabetic [BD Ultra-Fine Tammie Pen Needle] 32 gauge x 5/32" needle See Rx Instructions .Route Qty: 400 3RF Rx Instructions: Use 4 per day azelastine 137 mcg (0.1 %) aerosol,spray 1 spray intranasal BID Qty: 30 2RF Rx Instructions: administer into each nostril ([facility]) Flutter Valve Device See Rx Instructions .MEDSUPPLY Qty: 1 0RF Rx Instructions: Use it every 6 hours when awake. ascorbate calcium (vitamin C) 500 mg tablet 500 mg PO DAILY zinc gluconate 30 mg tablet 30 mg PO DAILY magnesium 250 mg tablet 250 mg PO DAILY levocetirizine 5 mg tablet 5 mg PO DAILY PRN (Reason: allergy symptoms) Rx Instructions: Take daily for 10 days then PRN mecobalamin (vitamin B12) 5,000 mcg tablet,chewable 5,000 mcg PO DAILY (DME) Auto Titrating CPAP Misc See Rx Instructions .MEDSUPPLY Qty: 1 0RF Rx Instructions: Auto PAP with 5-15cm H20. Lifetime usage. G47.33 (DME) CPAP Supplies Misc See Rx Instructions .MEDSUPPLY Qty: 1 0RF Rx Instructions: CPAP supplies, nasal pillow mask, headgear, filters, tubing, water chamber. G47.33 clonazepam 1 mg tablet 1 - 2 mg PO DAILY PRN (Reason: Anxiety AND PANIC) betamethasone dipropionate 0.05 % lotion 1 applic topical DAILY Qty: 60 1RF Rx Instructions: Apply to areas of the scalp once daily at bedtime for up to 2 weeks as needed for flaring. Breztri Aerosphere 160-9-4.8 mcg/actuation HFA aerosol inhaler 2 inh inhalation BID Qty: 3 2RF albuterol sulfate [Ventolin HFA] 90 mcg/actuation HFA aerosol inhaler 2 inh INH Q4H PRN (Reason: Shortness Of Breath Or Wheezing) Qty: 2 5RF ipratropium-albuterol 0.5 mg-3 mg(2.5 mg base)/3 mL solution for nebulization 3 ml inhalation Q8H PRN (Reason: shortness of breath or wheezing) Qty: 180 1RF montelukast [Singulair] 10 mg tablet 10 mg PO QPM Qty: 30 7RF Patient Comments: QAM azithromycin 250 mg tablet 250 mg PO .COMPLEX Qty: 36 2RF Rx Instructions: 250 mg PO 1 tab p.o. on Mnkceg-Blrenyrin-Dufbol; Mucinex DM 30-600 mg tablet extended release 12 hr 1 tab PO Q12H PRN (Reason: cough) Qty: 90 2RF Rx Instructions: Take 1 tab twice daily for 5 days and then as needed Mounjaro 12.5 mg/0.5 mL pen injector 12.5 mg subcut ONCE Qty: 6 5RF Rx Instructions: Inject once a week. losartan 25 mg tablet 25 mg PO DAILY Qty: 90 1RF Rx Instructions: Take one tablet once daily by mouth. rosuvastatin 10 mg tablet 10 mg PO DAILY Qty: 90 1RF Rx Instructions: Take 1 tablet once daily by mouth. cholecalciferol (vitamin D3) [Vitamin D3] 125 mcg (5,000 unit) tablet 50 mcg PO DAILY bupropion HCl 200 mg tablet sustained-release 12 hr 200 mg PO QAM famotidine 20 mg tablet 20 mg PO BID Rx Instructions: TAKE AT LUNCH AND BEDTIME pantoprazole 40 mg tablet,delayed release (DR/EC) 40 mg PO BID Rx Instructions: TAKE 30-60 MINUTES PRIOR TO EATING BREAKFAST AND DINNER Trintellix 20 mg tablet 20 mg PO QAM prednisone 10 mg tablet 10 mg PO DAILY Qty: 30 0RF Rx Instructions: Take 4 tabs x 2days, then 3 tabs x 2days then 2 tabs x 2days then 1 tab x 2 days codeine-guaifenesin 10-100 mg/5 mL Liquid 10 ml PO Q6H PRN (Reason: cough) Qty: 120 0RF Rx Instructions: caution drowsiness Discharge Orders: Discharge Order (Routine); Ordered 04/20/24 Ordered By: Clinton Salinas Admission Data Admit Date/Time: 04/14/24 20:25 Attending Provider: Clinton Salinas Admit Provider: Nash Resendez Primary Care Provider: Reji Ga Other Providers: Nash Resendez Hospital Stay Data Consultations 04/14/24 19:49 ED Decision to Admit Stat Pending Results Patient Have Any Pending Studies at Discharge: No Discharge Instructions Given to Patient (Per Discharging Provider) Take doxycycline 100 mg twice a day for 1 more week. Take prednisone in a tapering dose fashion as directed. Follow-up with soon as possible with your primary care provider Total Time Total Time Spent Total Time Spent (In Minutes): 45 minutes Coding Level of Care Code 06016 INP/OBS DISCH >30 MIN Diagnoses Acute respiratory failure with hypoxia J96.01 Pneumonia involving right lung J18.9 Influenza A virus subtype H1 2009 pandemic strain present J10.1 Acute exacerbation of chronic obstructive pulmonary disease (COPD) J44.1 Type 2 diabetes mellitus E11.9 Anxiety F41.9
[2024-04-20] MEDS: predniSONE 10 MG TABLET PO SCH (13:59)
[2024-04-20 14:32] VITALS: PULSE 74; RESP 20; O2SAT 94
== END 2024-04-20 15:53 | disposition home or self-care (01) | DRG 871 ==
LOC: ED 18:24 → 4W 20:25 → SUATTDRO 20:25 → 4W 21:44 → 3W 04-17 21:45